=== PATIENT | male | born 1945 | race Caucasian/White ===

== ENCOUNTER 2019-08-20 22:50 | Emergency (ER) | payer MEDICARE, OTHER, SELFPAY ==
--- NOTE | 2019-08-20 23:03 | ECG_ITS ---
Measurements Intervals [place] Rate: 78 P: 257 AL: 148 QRS: -2 QRSD: 99 T: 136 QT: 370 QTc: 422 SINUS RHYTHM LEFT VENTRICULAR HYPERTROPHY AND ST-T CHANGE [VOLTAGE CRITERIA PLUS ST/T ABNORMALITY] No previous ECG available for comparison Electronically Signed On 08-21-2019 20:21:51 CDT by Jorge Atkinson M.D. [email or web address]
--- NOTE | 2019-08-20 23:03 | XRR_ITS ---
PROCEDURE INFORMATION: Exam: XR Chest, 1 View Exam date and time: 08/20/2019 11:27 PM Age: 74 years old Clinical indication: Other: Weakness TECHNIQUE: Imaging protocol: XR of the chest Views: 1 view. COMPARISON: No relevant prior studies available. FINDINGS: Lungs: Right middle lobe minimal atelectasis. Pleural space: Unremarkable. No pleural effusion. No pneumothorax. Heart/Mediastinum: Mild cardiomegaly. Bones/joints: Unremarkable. XR/XR chest 1V portable [id number] IMPRESSION: 1. Right middle lobe minimal atelectasis. 2. Mild cardiomegaly.
--- NOTE | 2019-08-20 23:03 | CTR_ITS ---
PROCEDURE INFORMATION: Exam: CT Head Without Contrast Exam date and time: 08/20/2019 11:12 PM Age: 74 years old Clinical indication: Weakness, extremity; Left; Additional info: Symptoms of acute stroke TECHNIQUE: Imaging protocol: Computed tomography of the head without contrast. Total DLP: 1568.387 mGy-cm Radiation optimization: All CT scans at this facility use at least one of these dose optimization techniques: automated exposure control; mA and/or kV adjustment per patient size (includes targeted exams where dose is matched to clinical indication); or iterative reconstruction. Other technique: STROKE PROTOCOL was implemented. COMPARISON: No relevant prior studies available. FINDINGS: Brain: Mild diffuse cortical volume loss. Mild-moderate scattered hypodensities in supratentorial periventricular and subcortical white matter. Encephalomalacia in the left occipital lobe. No intracranial hemorrhage. Ventricles: Normal. No ventriculomegaly. Bones/joints: Unremarkable. No acute fracture. Sinuses: Visualized sinuses are unremarkable. No fluid levels. Mastoid air cells: Visualized mastoid air cells are well aerated. Soft tissues: Unremarkable. Vasculature: No hyperdense artery. CT/CT head wo con* [id number] IMPRESSION: 1. No acute intracranial abnormality. 2. Mild-moderate microangiopathy. 3. Old left occipital lobe infarct. ASSESSMENT: ASPECTS ([facility] Stroke Program Early CT Score) is 10. Radiation Dose CTDIVOL = (mGy): DLP = 1568.387 (mGy-cm)
[2019-08-20 23:04] VITALS: BP 183/102; PULSE 73; RESP 16; TEMP 35.9; O2SAT 98; BMI 33.2
--- NOTE | 2019-08-20 23:04 | PC.NURSE ---
EKG done at 2300 and shown to ER doctor
--- NOTE | 2019-08-20 23:06 | W.ED.NEUROSD ---
HPI - Neuro Symptoms/Deficit General: Time Seen by Provider: 08/20/19 22:55 NIH stroke score NIHSS: Level Of Consciousness - 1a: 0 Level Of Consciousness Questions - 1b: Both Correct Level Of Consciousness Commands - 1c: Both Correct Best Gaze - 2: Forced Deviation Visual Osorio - 3: Partial Hemianopia Facial Palsy - 4: Partial Paralysis Motor Arm Right - 5: No Drift Motor Arm Left - 5: No Effort Against [place] Motor Leg Right - 6: No Drift Motor Leg Left - 6: No Drift Limb Ataxia - 7: Present In One Limb Sensory - 8: Severe To Total Loss Best Language - 9: Mild/Moderate Aphasia Dysarthia - 10: Mild/Moderate Dysarthia Extinction And Inattention - 11: 1 Score: Total Score: 14 Coding Level of Care Code ED Stitch Separator for Kathrine Mora
[2019-08-20 23:14] VITALS: BP 178/99; PULSE 73; RESP 18; O2SAT 100
[2019-08-20 23:24] LABS: Alanine Aminotransferase 16 U/L (0-41); Albumin Level 4.6 g/dL (3.5-5.2); Alkaline Phosphatase 89 IU/L (40-130); Anion Gap 17.8 (5-19); Aspartate Amino Transferase 25 U/L (0-40); Blood Urea Nitrogen 17 mg/dL (8-23); Calcium 9.8 mg/dL (8.5-10.5); Carbon Dioxide 27 mmol/L (22-29); Chloride 97 mmol/L (98-107); Globulin 3.2 g/dL (1.3-4.6); Glucose 123 mg/dL (65-115); Osmolality Calculated 284 mOsm/kg (285-295); Potassium 3.8 mmol/L (3.5-5.1); Sodium 138 mmol/L (136-145); Total Bilirubin 0.4 mg/dL (0.15-1.2); Total Protein 7.8 g/dL (6.6-8.7)
--- NOTE | 2019-08-20 23:24 | CTR_ITS ---
PROCEDURE INFORMATION: Exam: CT Angiography Head With Contrast Exam date and time: 08/20/2019 11:43 PM Age: 74 years old Clinical indication: Weakness; Additional info: CVA TECHNIQUE: Imaging protocol: Computed tomography angiography of the head with intravenous contrast. 3D rendering: MIP and/or 3D reconstructed images were created by the technologist. Total DLP: 3086.44 mGy-cm Radiation optimization: All CT scans at this facility use at least one of these dose optimization techniques: automated exposure control; mA and/or kV adjustment per patient size (includes targeted exams where dose is matched to clinical indication); or iterative reconstruction. Contrast material: VISI; Contrast volume: 95 ml; Contrast route: IV; COMPARISON: CT head wo con* [id number] 08/20/2019 11:11 PM FINDINGS: Right internal carotid artery: There is mild atherosclerotic disease in the cavernous portion of the right internal carotid artery without significant stenosis. Right anterior cerebral artery: No occlusion or significant stenosis. No aneurysm. Right middle cerebral artery: There is occlusion of the distal M1 segment of the right middle cerebral artery. See axial series 4, image 246 and coronal series 603, image 54. Right posterior cerebral artery: No occlusion or significant stenosis. No aneurysm. Right vertebral artery: No occlusion or significant stenosis. No aneurysm. Left internal carotid artery: There is mild atherosclerotic disease in the cavernous portion of the left internal carotid artery without significant stenosis. Left anterior cerebral artery: No occlusion or significant stenosis. No aneurysm. Left middle cerebral artery: No occlusion or significant stenosis. No aneurysm. Left posterior cerebral artery: No occlusion or significant stenosis. No aneurysm. Left vertebral artery: No occlusion or significant stenosis. No aneurysm. Basilar artery: No occlusion or significant stenosis. No aneurysm. HEAD: Brain: There is relative hypoenhancement of the right insula and basal ganglia. IMPRESSION: Occlusion of the distal M1 segment of the right middle cerebral artery. PROCEDURE INFORMATION: Exam: CT Angiography Neck With Contrast Exam date and time: 08/20/2019 11:43 PM Age: 74 years old Clinical indication: Weakness; Additional info: CVA TECHNIQUE: Imaging protocol: Computed tomography angiography of the neck with intravenous contrast. 3D rendering: MIP and/or 3D reconstructed images were created by the technologist. Total DLP: 3086.44 mGy-cm Radiation optimization: All CT scans at this facility use at least one of these dose optimization techniques: automated exposure control; mA and/or kV adjustment per patient size (includes targeted exams where dose is matched to clinical indication); or iterative reconstruction. Contrast material: VISI; Contrast volume: 95 ml; Contrast route: IV; COMPARISON: CT head wo con* [id number] 08/20/2019 11:11 PM FINDINGS: Right common carotid artery: No stenosis. No dissection or occlusion. Right internal carotid artery: No stenosis of the extracranial segment. No dissection or occlusion. Right external carotid artery: No occlusion or stenosis of the origin. Right vertebral artery: There is moderate atherosclerotic disease at the origin of the right vertebral artery with approximately 50% stenosis. Left common carotid artery: No stenosis. No dissection or occlusion. Left internal carotid artery: No stenosis of the extracranial segment. No dissection or occlusion. Left external carotid artery: No occlusion or stenosis of the origin. Left vertebral artery: No stenosis. No dissection or occlusion. Aorta: There is mild aortic atherosclerotic disease. Bones/joints: There is mild multilevel spinal canal stenosis. There is moderate multilevel lower cervical degenerative disc disease. There is no acute fracture. Soft tissues: Soft tissues in the neck and thoracic inlet are unremarkable. Lungs: There are nonocclusive segmental pulmonary arterial filling defects in the right lung apex. CT/CT angio headneck* [id number] IMPRESSION: 1. No arterial occlusion or dissection. 2. Approximately 50% stenosis due to atherosclerotic disease at the origin of the right vertebral artery. 3. Segmental pulmonary embolism in the right upper lobe of uncertain chronicity. Chronic pulmonary embolism is favored. REFERENCES: NASCET CRITERIA. The degree of internal carotid artery stenosis is based on NASCET criteria. Normal is no stenosis. Mild is less than 50% stenosis. Moderate is 50-69% stenosis. Severe is 70% to 99% stenosis. Total occlusion is no detectable patent lumen. Radiation Dose CTDIVOL = (mGy): DLP = 3086.44~3086.44 (mGy-cm)
[2019-08-20 23:29] VITALS: BP 167/96; PULSE 72; RESP 18; O2SAT 100
[2019-08-20 23:42] LABS: Basophils % 0.2 %; Eosinophils # 0.2 10^3/uL (0.0-0.8); Eosinophils % 4.2 %; Hematocrit 38.5 % (42.0-52.0); Hemoglobin 12.8 g/dL (11.7-16.6); Lymphocytes # 1.3 10^3/uL (0.8-4.8); Mean Corpuscular HGB Conc 33.2 g/dL (30.0-36.0); Mean Corpuscular Volume 96.3 fL (80-94); Mean Platelet Volume 11.6 fL (7.4-10.4); Monocytes # 0.5 10^3/uL (0.2-0.9); Monocytes % 8.1 %; Neutrophils # 3.6 10^3/uL (1.8-7.7); Neutrophils % 64.1 %; Nucleated Red Blood Cells % 0 %; Platelet Count 176 10^3/cmm (130-400); White Blood Count 5.5 10^3/uL (4.0-10.0)
[2019-08-20 23:44] VITALS: BP 140/98; PULSE 71; RESP 18; O2SAT 98
[2019-08-20 23:47] LABS: Partial Thromboplastin Time 25.6 SECONDS (23.9-36.7)
[2019-08-20 23:59] VITALS: BP 150/91; PULSE 68; RESP 18; O2SAT 99
--- NOTE | 2019-08-21 00:13 | PC.NURSE ---
alteplase administered to patient. this nurse along with cupola charger wasted 23.8 mg; 6.9mg bolus at 2345; infusion started at 2346 at 62ml/hr
[2019-08-21 00:14] VITALS: BP 144/86; PULSE 69; RESP 16; O2SAT 98
[2019-08-21] MEDS: iodixanol 320 mg/mL 100mL Btl IV (00:36)
[2019-08-21] MEDS: sodium chloride 0.9% 100 ML 62 ML (01:24)
[2019-08-21 01:30] VITALS: BP 161/96; PULSE 77; RESP 18; O2SAT 97
--- NOTE | 2019-08-21 01:33 | ED_ITS ---
HPI - Altered Mental Status General: Chief Complaint: Altered Mental Status Time Seen by Provider: 08/20/19 22:55 History of Present Illness: HPI narrative: 74-year-old gentleman who at 935 in the evening evidently had sudden onset of left-sided weakness, some facial droop, and slurring of speech. This happened at home. He presents in a similar fashion. He is awake alert and talking. He has no prior history of known stroke. He does have a history of seizure disorder, but no seizures were noted tonight. MD complaint: weakness Onset (ago): minute(s) Time: 21:35 Timing confirmed by: spouse and family member Severity: severe Consistency of symptoms: Constant Context: seizure disorder Review of Systems Const: Denies: fever or chills Eyes: Reports: change in vision; Denies: blurry vision ENMT: Denies: painful swallowing, post nasal drip or facial/sinus pain Card: Denies: chest pain, palpitations or irregular heart rhythm Resp: Denies: shortness of breath, productive cough, non-productive cough or wheezing GI: Denies: abdominal pain, nausea or vomiting : Denies: difficulty urinating or blood in urine Musc: Denies: neck pain, back pain, redness or joint warmth Skin/Breast: Denies: rash or itching Neuro: Denies: headache, dizziness or confusion Psych: Denies: anxiety Physical Exam Const: GENERAL APPEARANCE: well developed ORIENTATION/CONSCIOUSNESS: Yes oriented to person, Yes oriented to place and Yes oriented to time HENMT: COMMON NORMALS: external ears normal FACE & SINUS: normal facial exam NOSE: no nasal discharge EXTERNAL EAR: Yes external ears normal MOUTH: tongue normal THROAT: posterior oropharynx normal; no peritonsillar mass Eye: COMMON NORMALS: PERRL and conjunctivae normal EYELID: eyelids normal CONJUNCTIVA: Yes conjunctivae normal PUPIL: Yes PERRL Neck/C-Spine: GENERAL: No tracheal deviation Chest: COMMONS NORMALS: inspection of chest normal CHEST: No tenderness Resp: COMMON NORMALS: clear to auscultation bilaterally EFFORT & INSPECTION: No tachypneic, No respiratory distress, No retractions, No uses accessory muscles and No tracheal deviation AUSCULTATION: clear to auscultation bilaterally, no rhonchi, no wheezes and lung sounds not diminished Cardio: COMMON NORMALS: regular rate and regular rhythm RATE: regular rate RHYTHM: regular rhythm HEART SOUNDS: no murmurs PERIPHERAL PULSES: radial pulses present GI: INSPECTION: No abdominal distension AUSCULTATION: No hyperactive bowel sounds and No hypoactive bowel sounds PALPATION: No guarding and No rigid PERCUSSION: no dullness to percussion and no tympanic to percussion Neuro: SENSORIUM/ORIENTATION: Yes oriented to person, Yes oriented to place and Yes oriented to time CRANIAL NERVES: Yes CN VII (facial) Laterality: left CN VII left: facial droop COORDINATION/BALANCE: No uulljz-tr-clsm test normal and vcrc-mx-lijk test normal SPEECH: abnormal speech GAIT: Yes unable to assess gait SENSORY EXAM: Yes extremities (loss UE, LE, FACE chest on left) MOTOR EXAM: pronator drift pronator drift of left upper extremity (significant) COORDINATION: pqbqhi-aj-zxre test abnormal and odgb-ay-squz test normal Psych: COMMON NORMALS: mental status grossly normal Skin: COMMON NORMALS: no rashes or lesions noted GENERAL SKIN EXAM: no rashes or lesions noted Course Vital Signs: Vital signs: Vital Signs Temperature 96.6 F L 08/20/19 23:04 Pulse Rate 58 L 08/21/19 02:07 Respiratory Rate 16 08/21/19 02:07 Blood Pressure 125/71 08/21/19 02:07 Pulse Oximetry 94 08/21/19 02:07 MDM - Altered Mental Status MDM Narrative: Medical decision making narrative: 74-year-old male presents within the window with symptoms consistent with right middle circulation stroke. His initial noncontrast CT was negative for hemorrhage. It did show an old left occipital stroke. Stroke alert was called, and after discussion with neurology at [facility], along with counseling with family, agr greyd to give TPA. He did not worsen. Initially, he would not follow to the left past midline, had neglect, etc. His stroke scale score was 14. He is now moving the left upper extremity more, he follows/turns his head past midline to the left. He still has a vision deficit. He still has some neglect of the left side. CTA revealed a right M1 MCA occlusion. Discussed this again with neurology at [facility] in [place]. He would be a candidate for vascular intervention with at this point. They ask for him to be transferred there. We have cleared with air ambulance service, and are transporting this patient to [place]. Currently heart rate 60 sinus, blood pressure 125/71. Oxygen sats 95% on room air. Lab Data: Labs: Lab Results 08/20/19 08/20/19 08/20/19 Range/Units 23:01 23:01 23:32 WBC 5.5 (4.0-10.0) 10^3/ uL RBC 4.00 L (4.1-5.3) 10^6/u L Hgb 12.8 (11.7-16.6) g/dL Hct 38.5 L (42.0-52.0) % MCV 96.3 H (80-94) fL MCH 32.0 (28.0-34.0) pg MCHC 33.2 (30.0-36.0) g/dL RDW 13.0 (12.1-15.1) % Plt Count 176 (130-400) 10^3/c mm MPV 11.6 H (7.4-10.4) fL Neut % (Auto) 64.1 % Lymph % (Auto) 23.0 % [place] % (Auto) 8.1 % Eos % (Auto) 4.2 % Baso % (Auto) 0.2 % Neut # (Auto) 3.6 (1.8-7.7) 10^3/u L Lymph # (Auto) 1.3 (0.8-4.8) 10^3/u L [place] # (Auto) 0.5 (0.2-0.9) 10^3/u L Eos # (Auto) 0.2 (0.0-0.8) 10^3/u L Baso # (Auto) 0.0 (0.0-0.1) 10^3/u L Nucleated RBC % (a uto) 0 % Nucleated RBCs # 0.0 /100WBC PT Cancelled INR Cancelled APTT Cancelled Sodium 138 (136-145) mmol/L Potassium 3.8 (3.5-5.1) mmol/L Chloride 97 L (98-107) mmol/L Carbon Dioxide 27 (22-29) mmol/L Anion Gap 17.8 (5-19) BUN 17 (8-23) mg/dL Creatinine 1.5 H (0.7-1.2) mg/dL Glucose 123 H (65-115) mg/dL Calculated Osmolal ity 284 L (285-295) mOsm/k g Calcium 9.8 (8.5-10.5) mg/dL Total Bilirubin 0.4 (0.15-1.2) mg/dL AST 25 (0-40) U/L ALT 16 (0-41) U/L Alkaline Phosphata se 89 (40-130) IU/L Total Protein 7.8 (6.6-8.7) g/dL Albumin 4.6 (3.5-5.2) g/dL Globulin 3.2 (1.3-4.6) g/dL 08/20/19 Range/Units 23:32 WBC (4.0-10.0) 10^3/ uL RBC (4.1-5.3) 10^6/u L Hgb (11.7-16.6) g/dL Hct (42.0-52.0) % MCV (80-94) fL MCH (28.0-34.0) pg MCHC (30.0-36.0) g/dL RDW (12.1-15.1) % Plt Count (130-400) 10^3/c mm MPV (7.4-10.4) fL Neut % (Auto) % Lymph % (Auto) % [place] % (Auto) % Eos % (Auto) % Baso % (Auto) % Neut # (Auto) (1.8-7.7) 10^3/u L Lymph # (Auto) (0.8-4.8) 10^3/u L [place] # (Auto) (0.2-0.9) 10^3/u L Eos # (Auto) (0.0-0.8) 10^3/u L Baso # (Auto) (0.0-0.1) 10^3/u L Nucleated RBC % (a uto) % Nucleated RBCs # /100WBC PT 13.50 H INR 1.00 APTT 25.6 Sodium (136-145) mmol/L Potassium (3.5-5.1) mmol/L Chloride (98-107) mmol/L Carbon Dioxide (22-29) mmol/L Anion Gap (5-19) BUN (8-23) mg/dL Creatinine (0.7-1.2) mg/dL Glucose (65-115) mg/dL Calculated Osmolal ity (285-295) mOsm/k g Calcium (8.5-10.5) mg/dL Total Bilirubin (0.15-1.2) mg/dL AST (0-40) U/L ALT (0-41) U/L Alkaline Phosphata se (40-130) IU/L Total Protein (6.6-8.7) g/dL Albumin (3.5-5.2) g/dL Globulin (1.3-4.6) g/dL Critical Care Time Critical Care Time: Critical Care Time: Yes Total Critical Care Time: 50 Attestation: This case had a high probability of a clinically significant, sudden, or life threatening deterioration of this patient's condition which required my full and direct attention, intervention and personal management. Discharge Plan Discharge Patient Disposition: Xfer Other Referrals: [facility] [Other] Discharge Date/Time: 08/21/19 03:00 Coding Level of Care Code ED Gas Engine Performance Engineer for Kathrine Fwd Exam Comprehensive
[2019-08-21 02:06] VITALS: BP 125/71; PULSE 58; RESP 16; O2SAT 94
[2019-08-21 02:07] VITALS: BP 125/71; PULSE 58; RESP 16; O2SAT 94
[2019-08-21 07:13] LABS: Glucose Point of Care 128 mg/dL (70-110)
== END 2019-08-21 03:00 | disposition other institution (70) ==
PROVIDERS: Emergency Provider Emergency Medicine
DX: R41.82 Altered mental status, unspecified (principal); R53.1 Weakness
CPT/HCPCS: 12345; 36416; 70450; 70496; 70498; 71045; 80053; 82962; 85025; 85610; 85730; 93005; 96365; 96366; 99284; 99285; J2997; Q9967

== ENCOUNTER 2019-10-02 08:55 | Emergency (ER) | payer MEDICARE, OTHER, SELFPAY ==
[2019-10-02 09:03] VITALS: BP 140/88; PULSE 76; RESP 18; TEMP 36.5; O2SAT 98; BMI 28.1
--- NOTE | 2019-10-02 09:09 | CTR_ITS ---
PROCEDURE INFORMATION: Exam: CT Head Without Contrast Exam date and time: 10/02/2019 9:45 AM Age: 74 years old Clinical indication: Weakness, extremity; Bilateral TECHNIQUE: Imaging protocol: Computed tomography of the head without contrast. Radiation optimization: All CT scans at this facility use at least one of these dose optimization techniques: automated exposure control; mA and/or kV adjustment per patient size (includes targeted exams where dose is matched to clinical indication); or iterative reconstruction. COMPARISON: CT head wo con* [id number] 08/20/2019 11:11 PM RADIATION DOSE METRICS: Total DLP: 816.78 mGy-cm FINDINGS: Brain: Large ischemic infarct in the right MCA distribution, believed to be subacute. MRI can be performed for improved characterization if clinically indicated. Chronic ischemic infarct in the left occipital lobe. Small-vessel ischemic change, including a large right basal ganglia lacunar infarct. Prominence of the cortical sulci. Ventricles: Age appropriate caliber of the ventricles. Bones/joints: No acute calvarial pathology. Additional findings as described above. Sinuses: No sinus fluid. Mastoid air cells: Partial opacification of the left mastoid air cells. Vasculature: Vascular and dural calcification. Soft tissues: Unremarkable soft tissues. CT/CT head wo con* [id number] IMPRESSION: 1. Large ischemic infarct in the right MCA distribution, believed to be subacute. MRI can be performed for improved characterization if clinically indicated. 2. Small-vessel ischemic change, including a large right basal ganglia lacunar infarct. 3. Additional findings as described above. The aforementioned findings initiated a critical results communication pathway. An addendum will be issued at the time of clincian notification. Radiation Dose CTDIVOL = (mGy): DLP = 816.78 (mGy-cm)
--- NOTE | 2019-10-02 09:09 | ECG_ITS ---
Measurements Intervals [place] Rate: 74 P: 42 [place]: 143 QRS: 8 QRSD: 104 T: 167 QT: 415 QTc: 462 SINUS RHYTHM LEFT VENTRICULAR HYPERTROPHY AND ST-T CHANGE [VOLTAGE CRITERIA PLUS ST/T ABNORMALITY] Compared to ECG 08/20/2019 23:04:48 No significant changes Electronically Signed On 10-02-2019 19:05:15 CDT by Ruslan Lovett M.D. [id number] f
--- NOTE | 2019-10-02 09:11 | XRR_ITS ---
PROCEDURE INFORMATION: Exam: XR Chest, 1 View Exam date and time: 10/02/2019 9:14 AM Age: 74 years old Clinical indication: Other: Weakness TECHNIQUE: Imaging protocol: XR of the chest Views: 1 view. COMPARISON: CR (CHEST, ) 08/20/2019 11:18 PM FINDINGS: Lungs: Emphysematous change and mild interstitial prominence. Pleural space: Thickening of the right minor fissure. No significant pleural effusion. Heart/Mediastinum: Cardiomegaly. Prominent epicardial fat. Vasculature: Ectasia of the thoracic aorta. Bones/joints: Degenerative change. When correlating with the previous study, no significant interval changes are present. XR/XR chest 1V portable [id number] IMPRESSION: Stable appearance of the chest, not significantly changed from 08/20/19.
--- NOTE | 2019-10-02 09:14 | W.ED.NEUROSD ---
HPI - Neuro Symptoms/Deficit General: Chief Complaint: Neuro Symptoms/Deficit Stated Complaint: FALLS/L SIDED WEAKNESS Time Seen by Provider: 10/02/19 09:05 Source: patient Mode of arrival: ambulatory Limitations: no limitations History of Present Illness: HPI Narrative: Patient comes in this morning with 2 or 3 episodes of falling at home. Patient appears well. Patient does have a history of a CVA approximately 6 weeks ago at the end of July. Patient has some left-sided deficit but at this time is not exhibiting any problems. Patient is to use a walker while ambulating but does not use it all the time. Patient reports no cough, fever, urinary difficulty. Patient though is incontinent of urine. Patient is alert oriented. Patient appears well. Patient appears in no pain. Review of Systems General: Reports: 10 or more systems reviewed and unremarkable except in HPI and below Neuro: Reports: difficulty walking PFSH ED PFSH: Social History Smoking and tobacco status: never smoked Physical Exam Const: COMMON NORMALS: no acute distress, patient oriented x3 and alert GENERAL APPEARANCE: cooperative HENMT: COMMON NORMALS: normocephalic, TM's normal bilaterally and Normal external nose present HEAD & SCALP: normal to inspection and normocephalic NOSE: Normal external nose present TYMPANIC MEMBRANE: TM's normal bilaterally MOUTH: Normal oral and palatal mucosa present THROAT: posterior oropharynx normal Eye: GENERAL EYE: appearance normal, both eyes and all related structures Neck/C-Spine: COMMON NORMALS: full ROM and no meningeal signs Lymph: LYMPHATIC: no lymphadenopathy noted Chest: COMMONS NORMALS: normal inspection of the chest Resp: COMMON NORMALS: normal respiratory effort EFFORT & INSPECTION: Yes able to speak in complete sentences Cardio: COMMON NORMALS: regular rate and regular rhythm RATE: regular rate RHYTHM: regular rhythm GI: COMMON NORMALS: non-tender : COMMON NORMALS: Yes no CVA tenderness BLADDER/KIDNEY EXAM: Yes no CVA tenderness Back/Pelvis: COMMON NORMALS: no CVA tenderness and thoracic and lumbar spine normal to inspection Extremity: COMMON NORMALS: normal to inspection Neuro: COMMON NORMALS: patient oriented x3 and moves all extremities SENSORIUM/ORIENTATION: Yes alert MENINGEAL SIGNS: Yes no meningeal signs SPEECH: speech normal Psych: COMMON NORMALS: mental status grossly normal and cooperative Skin: COMMON NORMALS: no rashes or lesions noted GENERAL SKIN EXAM: no rashes or lesions noted Course Vital Signs: Vital signs: Vital Signs Temperature 97.7 F 10/02/19 09:03 Pulse Rate 76 10/02/19 09:03 Respiratory Rate 18 10/02/19 09:03 Blood Pressure 140/88 10/02/19 09:03 Pulse Oximetry 98 10/02/19 09:03 MDM - Neuro Symptoms/Deficit MDM Narrative: Medical decision making narrative: Patient presents today with complaints of weakness this morning and a fall. says he seems weaker today and he had slept all day yesterday. She was concerned there might be an infection. Patient is cooperative and speaks fine. Patient answers all questions appropriately. Patient has a little bit of left side facial droop from old stroke, he also has some left-sided weakness due to a recent stroke at the end of July. Differential diagnosis includes sepsis, dehydration, adverse drug effect, UTI, pneumonia. Chest x-ray was normal, urine was clear, laboratory values noted mild elevation of creatinine at 1.4 which is normal for patient. Patient also has a white count of 10,000. CT scan showed a subacute infarct on the right side which is probably due to his infarct back at the end of July. Patient was able to ambulate with minimal assist from spouse. Reviewed exam with patient and spouse recommending evaluation of medications and maybe consideration of reducing the dose of his benzodiazepine to assist with his sleepiness at times and his weakness. Recommended monitoring patient for worsening symptoms such as fever or increase weakness. Spouse and patient reports understanding and agreed to plan. Lab Data: Labs: Lab Results 10/02/19 10/02/19 10/02/19 Range/Units 09:15 09:15 09:15 WBC 10.0 (4.0-10.0) 10^3/ uL RBC 4.31 (4.1-5.3) 10^6/u L Hgb 13.7 (11.7-16.6) g/dL Hct 40.8 L (42.0-52.0) % MCV 94.7 H (80-94) fL MCH 31.8 (28.0-34.0) pg MCHC 33.6 (30.0-36.0) g/dL RDW 12.8 (12.1-15.1) % Plt Count 195 (130-400) 10^3/c mm MPV 11.2 H (7.4-10.4) fL Neut % (Auto) 88.6 % Lymph % (Auto) 5.9 % [place] % (Auto) 4.9 % Eos % (Auto) 0.3 % Baso % (Auto) 0.1 % Neut # (Auto) 8.9 H (1.8-7.7) 10^3/u L Lymph # (Auto) 0.6 L (0.8-4.8) 10^3/u L [place] # (Auto) 0.5 (0.2-0.9) 10^3/u L Eos # (Auto) 0.0 (0.0-0.8) 10^3/u L Baso # (Auto) 0.0 (0.0-0.1) 10^3/u L Nucleated RBC % (a uto) 0 % Nucleated RBCs # 0.0 /100WBC PT (10.5-13.3) SECO NDS INR (0.8-1.2) APTT (23.9-36.7) SECO NDS Sodium 136 (136-145) mmol/L Potassium 4.0 (3.5-5.1) mmol/L Chloride 97 L (98-107) mmol/L Carbon Dioxide 24 (22-29) mmol/L Anion Gap 19.0 (5-19) BUN 23 (8-23) mg/dL Creatinine 1.4 H (0.7-1.2) mg/dL Glucose 166 H (65-115) mg/dL POC Glucose (70-110) mg/dL Calculated Osmolal ity 282 L (285-295) mOsm/k g Lactic Acid 2.6 H (0.5-2.2) mmol/L Calcium 10.1 (8.5-10.5) mg/dL Total Bilirubin 0.2 (0.15-1.2) mg/dL AST 29 (0-40) U/L ALT 17 (0-41) U/L Alkaline Phosphata se 82 (40-130) IU/L Total Protein 7.6 (6.6-8.7) g/dL Albumin 4.5 (3.5-5.2) g/dL Globulin 3.1 (1.3-4.6) g/dL Urine Color (Yellow) Urine Appearance (CLEAR) Urine pH (5-7) Ur Specific Gravit y (1.005-1.030) Urine Protein (Negative) Urine Glucose (UA) (Normal) Urine Ketones (Negative) Urine Blood (Negative) Urine Nitrate (Negative) Urine Bilirubin (NEGATIVE) Urine Urobilinogen (Negative) mg/dL Ur Leukocyte Berta ase (Negative) Urine Opiates Scre en (Negative) ng/mL Ur Barbiturates Sc reen (Negative) ng/mL Ur Phencyclidine S crn (Negative) ng/mL Ur Amphetamines Sc reen (Negative) ng/mL U Benzodiazepines Scrn (Negative) ng/mL Urine Cocaine Scre en (Negative) ng/mL U Marijuana (THC) Screen (Negative) ng/mL 10/02/19 10/02/19 10/02/19 Range/Units 09:15 09:33 10:00 WBC (4.0-10.0) 10^3/ uL RBC (4.1-5.3) 10^6/u L Hgb (11.7-16.6) g/dL Hct (42.0-52.0) % MCV (80-94) fL MCH (28.0-34.0) pg MCHC (30.0-36.0) g/dL RDW (12.1-15.1) % Plt Count (130-400) 10^3/c mm MPV (7.4-10.4) fL Neut % (Auto) % Lymph % (Auto) % [place] % (Auto) % Eos % (Auto) % Baso % (Auto) % Neut # (Auto) (1.8-7.7) 10^3/u L Lymph # (Auto) (0.8-4.8) 10^3/u L [place] # (Auto) (0.2-0.9) 10^3/u L Eos # (Auto) (0.0-0.8) 10^3/u L Baso # (Auto) (0.0-0.1) 10^3/u L Nucleated RBC % (a uto) % Nucleated RBCs # /100WBC PT 13.80 H (10.5-13.3) SECO NDS INR 1.02 (0.8-1.2) APTT 25.3 (23.9-36.7) SECO NDS Sodium (136-145) mmol/L Potassium (3.5-5.1) mmol/L Chloride (98-107) mmol/L Carbon Dioxide (22-29) mmol/L Anion Gap (5-19) BUN (8-23) mg/dL Creatinine (0.7-1.2) mg/dL Glucose (65-115) mg/dL POC Glucose 148 (70-110) mg/dL Calculated Osmolal ity (285-295) mOsm/k g Lactic Acid (0.5-2.2) mmol/L Calcium (8.5-10.5) mg/dL Total Bilirubin (0.15-1.2) mg/dL AST (0-40) U/L ALT (0-41) U/L Alkaline Phosphata se (40-130) IU/L Total Protein (6.6-8.7) g/dL Albumin (3.5-5.2) g/dL Globulin (1.3-4.6) g/dL Urine Color Yellow (Yellow) Urine Appearance Clear (CLEAR) Urine pH 5 (5-7) Ur Specific Gravit y 1.015 (1.005-1.030) Urine Protein Neg (Negative) Urine Glucose (UA) Norm (Normal) Urine Ketones 1+ H (Negative) Urine Blood Neg (Negative) Urine Nitrate Negative (Negative) Urine Bilirubin Neg (NEGATIVE) Urine Urobilinogen Norm (Negative) mg/dL Ur Leukocyte Berta ase Negative (Negative) Urine Opiates Scre en (Negative) ng/mL Ur Barbiturates Sc reen (Negative) ng/mL Ur Phencyclidine S crn (Negative) ng/mL Ur Amphetamines Sc reen (Negative) ng/mL U Benzodiazepines Scrn (Negative) ng/mL Urine Cocaine Scre en (Negative) ng/mL U Marijuana (THC) Screen (Negative) ng/mL 10/02/19 Range/Units 10:00 WBC (4.0-10.0) 10^3/ uL RBC (4.1-5.3) 10^6/u L Hgb (11.7-16.6) g/dL Hct (42.0-52.0) % MCV (80-94) fL MCH (28.0-34.0) pg MCHC (30.0-36.0) g/dL RDW (12.1-15.1) % Plt Count (130-400) 10^3/c mm MPV (7.4-10.4) fL Neut % (Auto) % Lymph % (Auto) % [place] % (Auto) % Eos % (Auto) % Baso % (Auto) % Neut # (Auto) (1.8-7.7) 10^3/u L Lymph # (Auto) (0.8-4.8) 10^3/u L [place] # (Auto) (0.2-0.9) 10^3/u L Eos # (Auto) (0.0-0.8) 10^3/u L Baso # (Auto) (0.0-0.1) 10^3/u L Nucleated RBC % (a uto) % Nucleated RBCs # /100WBC PT (10.5-13.3) SECO NDS INR (0.8-1.2) APTT (23.9-36.7) SECO NDS Sodium (136-145) mmol/L Potassium (3.5-5.1) mmol/L Chloride (98-107) mmol/L Carbon Dioxide (22-29) mmol/L Anion Gap (5-19) BUN (8-23) mg/dL Creatinine (0.7-1.2) mg/dL Glucose (65-115) mg/dL POC Glucose (70-110) mg/dL Calculated Osmolal ity (285-295) mOsm/k g Lactic Acid (0.5-2.2) mmol/L Calcium (8.5-10.5) mg/dL Total Bilirubin (0.15-1.2) mg/dL AST (0-40) U/L ALT (0-41) U/L Alkaline Phosphata se (40-130) IU/L Total Protein (6.6-8.7) g/dL Albumin (3.5-5.2) g/dL Globulin (1.3-4.6) g/dL Urine Color (Yellow) Urine Appearance (CLEAR) Urine pH (5-7) Ur Specific Gravit y (1.005-1.030) Urine Protein (Negative) Urine Glucose (UA) (Normal) Urine Ketones (Negative) Urine Blood (Negative) Urine Nitrate (Negative) Urine Bilirubin (NEGATIVE) Urine Urobilinogen (Negative) mg/dL Ur Leukocyte Berta ase (Negative) Urine Opiates Scre en Negative (Negative) ng/mL Ur Barbiturates Sc reen Positive H (Negative) ng/mL Ur Phencyclidine S crn Negative (Negative) ng/mL Ur Amphetamines Sc reen Negative (Negative) ng/mL U Benzodiazepines Scrn Positive H (Negative) ng/mL Urine Cocaine Scre en Negative (Negative) ng/mL U Marijuana (THC) Screen Negative (Negative) ng/mL EKG Data^: EKG 1: Attestation: I personally reviewed and interpreted this EKG as follows: ( 45, sinus rhythm, left ventricular hypertrophy, regular rate at 74 bpm, no ST elevation, no ectopy, no change from EKG done on 08/20/2019.) Discharge Plan Discharge Patient Disposition: Home, Self-Care Clinical Impression: History of cerebrovascular accident Leg weakness Qualifiers: Laterality: left Qualified Code(s): R29.898 - Other symptoms and signs involving the musculoskeletal system Condition: Stable Prescriptions: No Action metformin 500 mg tablet 500 mg PO DAILY RF: 0 atorvastatin 80 mg tablet 80 mg PO DAILY RF: 0 aspirin 325 mg Tablet 325 mg PO DAILY RF: 0 alprazolam 1 mg tablet 1 mg PO TID RF: 0 amlodipine 5 mg tablet 5 mg PO DAILY RF: 0 glimepiride 1 mg tablet 1 mg PO DAILY RF: 0 phenobarbital 64.8 mg tablet 64.8 mg PO BID RF: 0 hydrochlorothiazide 25 mg tablet 25 mg PO DAILY RF: 0 Vitamin D2 1,250 mcg (50,000 unit) capsule 50,000 unit PO Q7D RF: 0 lisinopril 40 mg tablet 40 mg PO DAILY RF: 0 Xarelto 20 mg tablet 20 mg PO DAILY RF: 0 Discharge Orders: Discharge Order (Routine); Ordered 10/02/19 Ordered By: Anthony Gomez Discharge Diet: Usual diet Discharge Activity: Increase activity as tolerated Activity Restrictions/Additional Instructions: Drink plenty of fluids. Continue with routine medications as directed. Follow-up with primary care for further evaluation and treatment. It may be needed that patient needs his medication adjusted to help with fatigue. No signs of infection were noted at this time. No changes in CT scan was noted. Return to the ER for worsening symptoms or high fever. Coding Level of Care Code ED Postdoctoral Fellow for Chg Fwd Exam Comprehensive
[2019-10-02 09:23] LABS: Basophils % 0.1 %; Eosinophils % 0.3 %; Hematocrit 40.8 % (42.0-52.0); Hemoglobin 13.7 g/dL (11.7-16.6); Lymphocytes # 0.6 10^3/uL (0.8-4.8); Lymphocytes % 5.9 %; Mean Corpuscular HGB Conc 33.6 g/dL (30.0-36.0); Mean Corpuscular Hemoglobin 31.8 pg (28.0-34.0); Mean Corpuscular Volume 94.7 fL (80-94); Mean Platelet Volume 11.2 fL (7.4-10.4); Monocytes # 0.5 10^3/uL (0.2-0.9); Monocytes % 4.9 %; Neutrophils # 8.9 10^3/uL (1.8-7.7); Neutrophils % 88.6 %; Nucleated Red Blood Cells % 0 %; Platelet Count 195 10^3/cmm (130-400); Red Blood Count 4.31 10^6/uL (4.1-5.3); Red Cell Distribution Width 12.8 % (12.1-15.1)
[2019-10-02 09:36] LABS: Alanine Aminotransferase 17 U/L (0-41); Albumin Level 4.5 g/dL (3.5-5.2); Alkaline Phosphatase 82 IU/L (40-130); Aspartate Amino Transferase 29 U/L (0-40); Blood Urea Nitrogen 23 mg/dL (8-23); Calcium 10.1 mg/dL (8.5-10.5); Carbon Dioxide 24 mmol/L (22-29); Chloride 97 mmol/L (98-107); Globulin 3.1 g/dL (1.3-4.6); Glucose 166 mg/dL (65-115); Osmolality Calculated 282 mOsm/kg (285-295); Sodium 136 mmol/L (136-145); Total Bilirubin 0.2 mg/dL (0.15-1.2); Total Protein 7.6 g/dL (6.6-8.7)
[2019-10-02 09:42] LABS: Glucose Point of Care 148 mg/dL (70-110)
[2019-10-02 09:48] LABS: Lactic Sepsis W/Reflex 2.6 mmol/L (0.5-2.2)
[2019-10-02 10:08] LABS: INR 1.02 (0.8-1.2)
[2019-10-02 10:09] LABS: Partial Thromboplastin Time 25.3 SECONDS (23.9-36.7)
[2019-10-02 10:11] LABS: Add Urine Microscopic? NO
[2019-10-02 10:23] LABS: Amphetamines Screen Urine Negative (Negative); Barbiturates Screen Urine Positive (Negative); Benzodiazepines Screen Urine Positive (Negative); Cocaine Screen Urine Negative (Negative); Opiate Screen Urine Negative (Negative); PCP Screen Urine Negative (Negative); THC Screen Urine Negative (Negative)
[2019-10-02 10:29] LABS: Bilirubin Urine Neg (NEGATIVE); Blood Urine Neg (Negative); Glucose Urine UA Norm (Normal); Ketones Urine 1+ (Negative); Leukocyte Esterase Urine Negative (Negative); Nitrate Urine Negative (Negative); Protein Urine Neg (Negative); Specific Gravity, Urine 1.015 (1.005-1.030); Urine Appearance Clear (CLEAR); Urine Color Yellow (Yellow); Urobilinogen Urine Norm (Negative); pH Urine 5 (5-7)
[2019-10-02 11:06] LABS: Reflex Lactate Order REFLEX LACTIC ORDERD
[2019-10-02 11:56] VITALS: BP 140/107; PULSE 86; RESP 18; O2SAT 100
== END 2019-10-02 11:58 | disposition home or self-care (01) ==
PROVIDERS: Emergency Provider Nurse Practitioner Family
DX: R29.898 Other symptoms and signs involving the musculoskeletal system (principal); Z86.73 Personal history of transient ischemic attack (TIA), and cerebral infarction without residual deficits; Z79.82 Long term (current) use of aspirin; Z79.84 Long term (current) use of oral hypoglycemic drugs; Z79.899 Other long term (current) drug therapy
CPT/HCPCS: 12345; 36415; 36416; 70450; 71045; 80053; 80306; 81003; 82962; 83605; 85025; 85610; 85730; 93005; 99283; 99284

== ENCOUNTER 2020-05-17 09:13 | Outpatient (CLI) | payer MEDICARE, OTHER, SELFPAY ==
--- NOTE | 2020-05-17 09:31 | ECG_ITS ---
[facility] Test Date: 2020-05-17 Pat Name: Aron Paredes Department: Room: Gender: Male Owner Operator: : 1945 Requested By: Ute Borrego Order Number: [id number] Ezequiel MD: STARLA MEAD Interpretive Statements NAME OF STUDY: LEXISCAN SESTAMIBI STRESS TEST INDICATION: ASHD, NOTE: Please note that this is the electrocardiogram portion of the Lexiscan/Sestamibi stress test. The perfusion scan will be documented separately. DATA: Baseline heart rate was 85 beats per minute. Baseline blood pressure was 153/82 millimeters of mercury. Target heart rate was 147. Maximum heart rate achieved was 124. which was 84 % of the predicted target heart rate. Maximum blood pressure was 153/84 millimeters of mercury. The reason for ending the test was completion of the protocol. The patient did not experience any symptoms. ELECTROCARDIOGRAM: BASELINE: Sinus rhythm. Left ventricle hypertrophy, anterolateral T wave inversion could be repolarization abnormality. No arrhythmia noted. EXERCISE: After Lexiscan injection, no ST-T changes suggestive of ischemic noted. No arrhythmia noted. CONCLUSION: Please note due to baseline abnormality of the EKG specificity and sensitivity of the EKG portion of LexiScan MIBI stress test will be low 1. EKG not suggestive of ischemia 2. Lexiscan injection unremarkable. 3. Perfusion scan will be documented separately. Electronically Signed On 05-17-2020 18:19:05 REPAIR SUPERVISOR by STARLA MEAD [id number]
--- NOTE | 2020-05-17 09:32 | NMCV_ITS ---
NM jana perf SPECT r/s* [id number] Aron Paredes Age: 75 Gender: M : 1945 Exam Date: 05/17/2020 09:32 Ordering Phys: Ute Hodges MD Technologist: ANTONETTE Martínez Exam Location: [facility] Indications: ATHEROSCLEROTIC HEART DISEASE STRESS TEST Please see separate stress test report in [facility] for full findings IMAGE PROTOCOL Rest/Stress 1 Lexiscan Day Radiopharmaceutical Dose (mCi) Administration Site Administered by Rest: Tc-99m 10.7 IV ANTONETTE Martínez Sestamibi Stress:Tc-99m 32.6 IV ANTONETTE Kelley Sestamibi Rest: 17-May-2020 60 Discovery 630 Stress: 17-May-2020 30 Discovery 630 0.4mg Lexiscan. Images obtained in supine and prone position. SPECT RESULTS Technical Quality: Excellent Raw Data Analysis: Normal Image Corrections: No attenuation or motion correction applied Summed Stress Score: 0 Summed Rest Score: 3 Summed Difference Score: 0 PERFUSION FINDINGS SPECT images demonstrate homogeneous tracer distribution throughout the myocardium. FUNCTIONAL RESULTS (calculated via Gated SPECT) Stress Image LV EF (%): 70 Stress EDV (mL):67 TID: 1.33 Stress ESV (mL):20 Rest Image LV EF (%): 70 FUNCTIONAL FINDINGS: There is normal left ventricular systolic function. IMPRESSIONS Myocardial perfusion imaging is normal. TID ratio is elevated which could be secondary to left ventricle hypertrophy/subendocardial ischemia in the absence of other parameters. EKG segment will be documented separately. Ruslan Lovett MD (Electronically Signed) Final Date: 17 May 2020 17:16 S
[2020-05-17 09:45] VITALS: BMI 25.8
[2020-05-17] MEDS: regadenoson 0.4 Mg/5 ml Syringe IVP (11:31)
[2020-05-17 11:50] VITALS: BP 133/79; PULSE 89
== END 2020-05-17 09:14 | disposition home or self-care (01) ==
LOC: CDL 09:24
PROVIDERS: Visit Provider Family Medicine
DX: I25.10 Atherosclerotic heart disease of native coronary artery without angina pectoris (principal)
CPT/HCPCS: 78452; 93017; A9500; J2785

== ENCOUNTER → 2020-07-12 11:12 | Outpatient (BNVA) | payer MEDICARE, OTHER, SELFPAY | PROVIDERS: PCP Family Medicine; Visit Provider Urology | DX: R97.20 Elevated prostate specific antigen [PSA] (principal); R39.89 Other symptoms and signs involving the genitourinary system; R39.9 Unspecified symptoms and signs involving the genitourinary system | CPT/HCPCS: 81003 ==

== ENCOUNTER 2021-11-11 14:52 | Inpatient (IN) | payer MEDICARE, OTHER, SELFPAY ==
[2021-11-11] VITALS (19 sets, daily range): BP systolic 141–216; BP diastolic 92–171; PULSE 86–112; RESP 13–22; TEMP 36.8–37; O2SAT 91–98; BMI 27.3
--- NOTE | 2021-11-11 16:33 | ECG_ITS ---
[facility] Test Date: 2021-11-11 Pat Name: Aron Paredes Department: Room: Gender: Male Lead Applier: : 1945 Requested By: Donte Sampson Order Number: [id number] Ezequiel MD: Calixto Cortés M.D. Measurements Intervals [place] Rate: 85 P: CA: QRS: -9 QRSD: 97 T: 131 QT: 377 QTc: 449 Interpretive Statements ATRIAL FIBRILLATION VOLTAGE CRITERIA FOR LVH [MEETS CRITERIA IN ONE OF: R(aVL), S(V1), R(V5), R(V5/V6)+S(V1)] ST DEVIATION AND MODERATE T-WAVE ABNORMALITY, CONSIDER LATERAL ISCHEMIA [-0.1+ mV T-WAVE IN I/aVL/V5/V6] Compared to ECG 10/02/2019 09:45:09 T-wave abnormality now present Possible ischemia now present Sinus rhythm no longer present ST (T wave) deviation no longer present Electronically Signed On 11-11-2021 17:52:52 CDT by Calixto Cortés M.D. [id number]
--- NOTE | 2021-11-11 16:34 | CTR_ITS ---
PROCEDURE INFORMATION: Exam: CT Head Without Contrast Exam date and time: 11/11/2021 5:33 PM Age: 76 years old Clinical indication: Condition or disease; Cerebrovascular disease; Other: HX of CVA; Patient HX: Extremely high blood pressure with left sided weakness, TECHNIQUE: Imaging protocol: Computed tomography of the head without contrast. Radiation optimization: All CT scans at this facility use at least one of these dose optimization techniques: automated exposure control; mA and/or kV adjustment per patient size (includes targeted exams where dose is matched to clinical indication); or iterative reconstruction. COMPARISON: CT head wo con* [id number] 10/02/2019 9:40 AM RADIATION DOSE METRICS: Total DLP (mGy-cm): 1375.88 FINDINGS: Brain: No hemorrhage. Regions of encephalomalacia in the right MCA distribution and left occipital lobe corresponding to old infarcts. Moderate diffuse cerebral atrophy. No mass effect. Cerebral ventricles: No ventriculomegaly. Paranasal sinuses: Visualized sinuses are unremarkable. No fluid levels. Mastoid air cells: Visualized mastoid air cells are well aerated. Bones/joints: Unremarkable. No acute fracture. Soft tissues: Unremarkable. CT/CT head wo con* [id number] IMPRESSION: 1. No acute intracranial abnormality. 2. 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
--- NOTE | 2021-11-11 16:34 | XRR_ITS ---
PROCEDURE INFORMATION: Exam: XR Chest Exam date and time: 11/11/2021 5:22 PM Age: 76 years old Clinical indication: Cough; Additional info: Dyspnea/cough TECHNIQUE: Imaging protocol: Radiologic exam of the chest. Views: 1 view. COMPARISON: CR XR chest 1V portable [id number] 10/02/2019 9:48 AM FINDINGS: Lungs: Mild diffuse coarsening of the lung parenchyma. No consolidation. Pleural spaces: No pleural effusion. No pneumothorax. Heart/Mediastinum: No cardiomegaly. Bones/joints: Visualized osseous structures are intact. XR/XR chest 1V portable [id number] IMPRESSION: No acute findings.
--- NOTE | 2021-11-11 16:40 | W.ED.NEUROSD ---
HPI - Neuro Symptoms/Deficit General: Chief Complaint: Neuro Symptoms/Deficit Stated Complaint: possible stroke, weakness, left side pain Time Seen by Provider: 11/11/21 16:25 Source: patient Mode of arrival: ambulatory Limitations: no limitations History of Present Illness: 76 yo male presents with [facility] ED PFSH: Medical History Abnormal prostate exam Coronary artery disease CVA (cerebral vascular accident) Elevated PSA H/O coronary angiogram Hypercholesterolemia Hypertension Seizure disorder Type 2 diabetes mellitus Surgical History History of back surgery History of cholecystectomy Hx of appendectomy S/P balloon angioplasty of pulmonary artery branches Family History Mother , AT AGE 86 Diabetes Cancer Sister Diabetes Father , AT AGE 73 Emphysema, unspecified Other CAD (coronary artery disease) Social History Smoking and tobacco status: never smoked Alcohol intake: never Marital status: Current occupational status: retired History of recent travel: No Course Vital Signs: Vital signs: Vital Signs Temperature 98.2 F 11/11/21 15:04 Pulse Rate 89 11/11/21 15:04 Respiratory Rate 16 11/11/21 15:04 Pulse Oximetry 96 11/11/21 15:04 Discharge Plan Discharge Condition: Stable Prescriptions: No Action hydrocodone-acetaminophen 10-325 mg tablet 1 tab PO Q6H PRN0RF metformin 500 mg tablet 500 mg PO DAILY 0RF alprazolam 1 mg tablet 1 mg PO TID 0RF amlodipine 5 mg tablet 5 mg PO DAILY 0RF glimepiride 1 mg tablet 1 mg PO DAILY 0RF phenobarbital 64.8 mg tablet 64.8 mg PO BID 0RF hydrochlorothiazide 25 mg tablet 25 mg PO DAILY 0RF lisinopril 40 mg tablet 40 mg PO DAILY 0RF Xarelto 20 mg tablet 20 mg PO DAILY 0RF Rx Instructions: PTS STATES THAT THHE PTS HASNT GOT THIS MEDICATION YET Referrals: Ute Hodges MD [Primary Care Provider] - Coding Level of Care Code ED Senior Asset Manager for [employer]
[2021-11-11 16:59] LABS: Basophils % 0.1 %; Eosinophils # 0.1 10^3/uL (0.0-0.8); Eosinophils % 1.1 %; Hematocrit 35.1 % (42.0-52.0); Hemoglobin 11.5 g/dL (11.7-16.6); Lymphocytes # 1.3 10^3/uL (0.8-4.8); Lymphocytes % 15.3 %; Mean Corpuscular HGB Conc 32.8 g/dL (30.0-36.0); Mean Corpuscular Hemoglobin 31.6 pg (28.0-34.0); Mean Corpuscular Volume 96.4 fl (80-94); Mean Platelet Volume 11.3 fL (7.4-10.4); Monocytes # 0.6 10^3/uL (0.2-0.9); Monocytes % 6.5 %; Neutrophils # 6.68 10^3/uL (1.8-7.7); Neutrophils % 76.7 %; Nucleated Red Blood Cells % 0 %; Platelet Count 237 10^3/cmm (130-400); Red Blood Count 3.64 10^6/uL (4.1-5.3); Red Cell Distribution Width 12.8 % (12.1-15.1); White Blood Count 8.7 10^3/uL (4.0-10.0)
--- NOTE | 2021-11-11 17:17 | PC.PHAR ---
PTS VERIFIED PTS MEDICATIONS-PTS STATES THE PT HASNT STARTED ELIQUIS 5MG BID YET STATES THEY ARE WAITING FOR IT TO COME IN THE MAIL STATES THE PT IS SUPPOSE TO START SOON IT ARRIVES- PTS STATES THE PT IS TAKING XANAX 0.5MG HS RX LAST FILLED 10/19/2020 90D/S FOR 0.5MG TID-PTS STATES THE PT TAKES PHENOBARBITAL 64.8MG BID STATES THEY GET FROM A [employer]-PTS STATES THE PT HAS A INHALER BUT ONLY USES PRN EXT MED HISTORY DOESNT SHOW WHEN LAST FILLED-PTS STATES WITHIN THE LAST 2 WEEKS THE PT HAS ONLY TAKEN HIS AM MEDS TWICE-PTS STATES SHE THOUGHT THE PT WAS TAKING LISINOPRIL 40MG DAILY [facility] LAST FILLED 04/16/2018 PTS STATES THEN THE PT IS NOT TAKING LISINOPRIL-NOTES ARE MADE IN THE PHARMACY COMMENTS
[2021-11-11 17:37] LABS: Troponin(5th) Baseline 70 ng/L (0-15)
[2021-11-11 17:38] LABS: Alanine Aminotransferase 15 U/L (0-41); Albumin Level 3.6 g/dL (3.5-5.2); Alkaline Phosphatase 226 IU/L (40-130); Blood Urea Nitrogen 48 mg/dL (8-23); Calcium 8.9 mg/dL (8.5-10.5); Carbon Dioxide 23 mmol/L (22-29); Chloride 102 mmol/L (98-107); Globulin 3.3 g/dL (1.3-4.6); Glucose 123 mg/dL (65-115); Osmolality Calculated 302 mOsm/kg (285-295); Sodium 139 mmol/L (136-145); Total Bilirubin 0.4 mg/dL (0.15-1.2); Total Protein 6.9 g/dL (6.6-8.7)
[2021-11-11 18:03] LABS: Anion Gap 18.4 (5-19); Aspartate Amino Transferase 19 U/L (0-40); Potassium 4.4 mmol/L (3.5-5.1)
--- NOTE | 2021-11-11 18:10 | W.ED.NEUROSD ---
HPI - Neuro Symptoms/Deficit General: Chief Complaint: Neuro Symptoms/Deficit Stated Complaint: possible stroke, weakness, left side pain Time Seen by Provider: 11/11/21 16:25 Source: patient Mode of arrival: ambulatory Limitations: no limitations History of Present Illness: 76-year-old male who comes with family states that over the last 2 weeks has been having increasing weakness and confusion. He states that he is had a hard time doing daily activities like putting his pants on and is being quite confused. Patient here is able to answer most my questions but is confused to time at this time. Denies any fever denies any chest pain he is quite hypertensive. Not on any blood pressure meds at home. Associated symptoms: Deny chest pain, nausea or vomiting Review of Systems Const: Denies: fever(s), chills, body aches or change in appetite Eyes: Denies: blurry vision or eye discomfort ENMT: Denies: throat pain or dental pain Card: Denies: chest pain Resp: Denies: dyspnea GI: Denies: abdominal pain, nausea, vomiting or diarrhea : Denies: dysuria Musc: Denies: neck pain or back pain Skin/Breast: Denies: rash Neuro: Reports: weakness in extremities and confusion Psych: Denies: depression Bob/Lymph: Denies: easy bruising All/Imm: Denies: urticaria PFSH ED PFSH: Medical History Abnormal prostate exam Coronary artery disease CVA (cerebral vascular accident) Elevated PSA H/O coronary angiogram Hypercholesterolemia Hypertension Seizure disorder Type 2 diabetes mellitus Surgical History History of back surgery History of cholecystectomy Hx of appendectomy S/P balloon angioplasty of pulmonary artery branches Family History Mother , AT AGE 86 Diabetes Cancer Sister Diabetes Father , AT AGE 73 Emphysema, unspecified Other CAD (coronary artery disease) Social History Smoking and tobacco status: never smoked Alcohol intake: never Marital status: Current occupational status: retired History of recent travel: No Physical Exam Const: COMMON NORMALS: negative for patient oriented x3 HENMT: COMMON NORMALS: normocephalic and atraumatic HEAD & SCALP: normocephalic and atraumatic Eye: COMMON NORMALS: Equal, round and reactive pupils present and EOMs intact bilaterally PUPIL: Yes Equal, round and reactive pupils present Neck/C-Spine: COMMON NORMALS: full ROM and supple Chest: COMMONS NORMALS: normal inspection of the chest and normal palpation of entire chest wall Resp: COMMON NORMALS: normal respiratory effort, No retractions, No use of accessory muscles and clear to auscultation bilaterally AUSCULTATION: clear to auscultation bilaterally Cardio: COMMON NORMALS: regular rate, regular rhythm and No murmurs present (Cardio) RATE: regular rate RHYTHM: regular rhythm GI: COMMON NORMALS: Normal to inspection, nondistended, normoactive bowel sounds present, Soft to palpation, non-tender and no masses PALPATION: Yes Soft to palpation Extremity: COMMON NORMALS: normal to inspection and full ROM Neuro: COMMON NORMALS: moves all extremities and no focal motor deficits; negative for patient oriented x3 Psych: COMMON NORMALS: mental status grossly normal, Normal thought process present and cooperative THOUGHT PROCESS: Normal thought process present Skin: COMMON NORMALS: no rashes or lesions noted and no wounds GENERAL SKIN EXAM: no rashes or lesions noted Course Vital Signs: Vital signs: Vital Signs Temperature 98.2 F 11/11/21 15:04 Pulse Rate 91 11/11/21 17:00 Respiratory Rate 16 11/11/21 15:04 Blood Pressure 216/126 11/11/21 17:21 Pulse Oximetry 98 11/11/21 17:00 MDM - Neuro Symptoms/Deficit Medical Decision Making Patient presents here with neurologic complaints and is going on for weeks he is hypertensive here with likely hypertensive emergency he has an elevated creatinine and troponin I spoke to hospitalist will admit to the ICU. Lab Data : 11/11/21 16:50 11/11/21 16:50 Radiology Impressions Chest X-Ray 11/11/21 16:34 IMPRESSION: No acute findings. Head CT 11/11/21 16:34 IMPRESSION: 1. No acute intracranial abnormality. 2. 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 Laboratory Results WBC 8.7 10^3/uL (4.0-10.0) 11/11/21 16:50 RBC 3.64 10^6/uL (4.1-5.3) L 11/11/21 16:50 Hgb 11.5 g/dL (11.7-16.6) L 11/11/21 16:50 Hct 35.1 % (42.0-52.0) L 11/11/21 16:50 MCV 96.4 fl (80-94) H 11/11/21 16:50 MCH 31.6 pg (28.0-34.0) 11/11/21 16:50 MCHC 32.8 g/dL (30.0-36.0) 11/11/21 16:50 RDW 12.8 % (12.1-15.1) 11/11/21 16:50 Plt Count 237 10^3/cmm (130-400) 11/11/21 16:50 MPV 11.3 fL (7.4-10.4) H 11/11/21 16:50 Neut % (Auto) 76.7 % 11/11/21 16:50 Lymph % (Auto) 15.3 % 11/11/21 16:50 Garfield % (Auto) 6.5 % 11/11/21 16:50 Eos % (Auto) 1.1 % 11/11/21 16:50 Baso % (Auto) 0.1 % 11/11/21 16:50 Neut # (Auto) 6.68 10^3/uL (1.8-7.7) 11/11/21 16:50 Lymph # (Auto) 1.3 10^3/uL (0.8-4.8) 11/11/21 16:50 Garfield # (Auto) 0.6 10^3/uL (0.2-0.9) 11/11/21 16:50 Eos # (Auto) 0.1 10^3/uL (0.0-0.8) 11/11/21 16:50 Baso # (Auto) 0.0 10^3/uL (0.0-0.1) 11/11/21 16:50 Nucleated RBC % (auto) 0 % 11/11/21 16:50 Nucleated RBCs # 0.0 /100WBC 11/11/21 16:50 Sodium 139 mmol/L (136-145) 11/11/21 16:50 Potassium 4.4 mmol/L (3.5-5.1) 11/11/21 16:50 Chloride 102 mmol/L (98-107) 11/11/21 16:50 Carbon Dioxide 23 mmol/L (22-29) 11/11/21 16:50 Anion Gap 18.4 (5-19) 11/11/21 16:50 BUN 48 mg/dL (8-23) H 11/11/21 16:50 Creatinine 3.9 mg/dL (0.7-1.2) H 11/11/21 16:50 GFR Calculation Not Reportable 11/11/21 16:50 Glucose 123 mg/dL (65-115) H 11/11/21 16:50 Calculated Osmolality 302 mOsm/kg (285-295) H 11/11/21 16:50 Calcium 8.9 mg/dL (8.5-10.5) 11/11/21 16:50 Total Bilirubin 0.4 mg/dL (0.15-1.2) 11/11/21 16:50 AST 19 U/L (0-40) 11/11/21 16:50 ALT 15 U/L (0-41) 11/11/21 16:50 Alkaline Phosphatase 226 IU/L (40-130) H 11/11/21 16:50 Troponin T Baseline 70 ng/L (0-15) H 11/11/21 16:50 Total Protein 6.9 g/dL (6.6-8.7) 11/11/21 16:50 Albumin 3.6 g/dL (3.5-5.2) 11/11/21 16:50 Globulin 3.3 g/dL (1.3-4.6) 11/11/21 16:50 EKG Data EKG 1: I personally reviewed and interpreted this EKG as follows: EKG interpretation date: 11/11/21 EKG interpretation time: 16:43 Interpretation: afib hr [address] or twave abnormalities qrs 97 qtc 419 Critical Care Time Critical Care Time: Critical Care Time: Yes Total Critical Care Time: 40 Attestation: The high probability of a clinically significant, sudden or life threatening deterioration of the patient's cv system(s) required my full and direct attention, intervention and personal management. The critical care time is as shown. This time is in addition to time spent performing any reported procedures but includes the following: [x] Data and vital sign review and interpretation [x] Patient assessment, examination and intervention [x] Documentation [x] Medication orders and management Discharge Plan Discharge Patient Disposition: Admitted As Inpatient Admit Provider: Yessenia Neff Clinical Impression: Hypertensive emergency, Acute kidney injury, Altered mental status Condition: Stable Coding Level of Care Code ED Investment Recovery Technician for Kathrine Fwd Exam Comprehensive
[2021-11-11] MEDS: hyDRALAzine 20 mg/mL INJ 1 mL 10 MG IVP (18:22)
[2021-11-11] MEDS: sodium chloride 0.9% 1,000 ML 999 ML IV (18:23)
--- NOTE | 2021-11-11 19:04 | ECG_ITS ---
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 Measurements Intervals [place] Rate: 101 P: MN: QRS: -4 QRSD: 93 T: 99 QT: 356 QTc: 463 Interpretive Statements ATRIAL FIBRILLATION WITH RAPID VENTRICULAR RESPONSE VOLTAGE CRITERIA FOR LVH [MEETS CRITERIA IN ONE OF: R(aVL), S(V1), R(V5), R(V5/V6)+S(V1)] ST DEVIATION AND MODERATE T-WAVE ABNORMALITY, CONSIDER LATERAL ISCHEMIA [-0.1+ mV T-WAVE IN I/aVL/V5/V6] Compared to ECG 11/11/2021 16:43:15 No significant changes Electronically Signed On 11-12-2021 20:59:00 CDT by Jorge Atkinson M.D. [id number]
--- NOTE | 2021-11-11 20:06 | PM.HP ---
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 He has not been wanting to take his medications for several weeks in the mornings. He has gotten more swelling in his legs. He also had a fall about 4 weeks ago at which time he fell on his back, since then has been having some pain in the left lower side of his abdomen. He has history of seizures for which she also follows with neurologist, although his denies any seizure-like activity. On arrival he is noted to have quite elevated blood pressure, 216/126 for which he is given IV hydralazine. CT of the head shows sequela of old infarcts in right MCA distribution and left occipital lobe. She is noted to have acute kidney injury, creatinine 3.9. For his back pain he has been taking Tylenol. He and his deny taking any NSAIDs. In case of cardiopulmonary arrest, he would not want CPR or intubation/mechanical ventilation. Review of Systems Const: Denies: fever(s), chills, body aches or malaise Eyes: Denies: change in vision, eye discomfort or eye redness ENMT: Denies: throat pain, oral sores or ear or mastoid pain Card: Denies: chest pain, edema, pre-syncope or dyspnea on exertion Resp: Denies: dyspnea, productive cough, change in phlegm color or hemoptysis GI: Reports: abdominal pain; Denies: nausea, vomiting, diarrhea, constipation, hematochezia or melena : Denies: flank pain, difficulty urinating, urinary frequency or hematuria Musc: Denies: back pain, joint swelling or joint redness Skin/Breast: Denies: rash or new lesions Neuro: Reports: confusion; Denies: numbness in extremities, weakness in extremities, dizziness or seizure-like activity Endo: Denies: polyuria or polydipsia Bob/Lymph: Denies: easy bleeding or tender lymph nodes All/Imm: Denies: urticaria or tongue swelling Medications/Allergies Home Medications Medication Instructions Recorded Confirmed Last Taken Type alprazolam 1 mg tablet 0.5 mg PO BEDTIME 10/02/19 11/11/21 Unknown History glimepiride 1 mg tablet 1 mg PO BEDTIME 10/02/19 11/11/21 Unknown History metformin 500 mg tablet 500 mg PO QAM 10/02/19 11/11/21 Unknown History phenobarbital 64.8 mg tablet 64.8 mg PO BID 10/02/19 11/11/21 Unknown History albuterol sulfate 90 mcg/actuation 2 puff INHALATION QID PRN 11/11/21 11/11/21 Unknown History aerosol inhaler (ProAir HFA) apixaban 5 mg tablet (Eliquis) 5 mg PO BID 11/11/21 11/11/21 Unknown History baclofen 10 mg tablet 10 mg PO BEDTIME 11/11/21 11/11/21 Unknown History citalopram 10 mg tablet 10 mg PO QAM 11/11/21 11/11/21 Unknown History diphenhydramine HCl 25 mg capsule 25 mg PO BID 11/11/21 11/11/21 Unknown History (Benadryl) ergocalciferol (vitamin D2) 1,250 50,000 unit PO Q7D 11/11/21 11/11/21 Unknown History mcg (50,000 unit) capsule furosemide 20 mg tablet 20 - 60 mg PO DAILY PRN 11/11/21 11/11/21 Unknown History ipratropium bromide 21 mcg (0.03 2 spray INTRANASAL TID PRN 11/11/21 11/11/21 Unknown History %) nasal spray potassium chloride 8 mEq 8 - 24 meq PO DAILY PRN 11/11/21 11/11/21 Unknown History tablet,extended release Allergies Allergy/AdvReac Type Severity Reaction Status Date / Time divalproex sodium Allergy Unknown Verified 10/02/19 09:45 morphine Allergy Unknown Verified 10/02/19 09:45 phenytoin Allergy Unknown Verified 10/02/19 09:45 PFSH Acute PFSH: Medical History Abnormal prostate exam Coronary artery disease CVA (cerebral vascular accident) Elevated PSA H/O coronary angiogram Hypercholesterolemia Hypertension Seizure disorder Type 2 diabetes mellitus Surgical History History of back surgery History of cholecystectomy Hx of appendectomy S/P balloon angioplasty of pulmonary artery branches Family History Mother , AT AGE 86 Diabetes Cancer Sister Diabetes Father , AT AGE 73 Emphysema, unspecified Other CAD (coronary artery disease) Social History Smoking and tobacco status: never smoked Alcohol intake: never Marital status: Current occupational status: retired History of recent travel: No Vitals/I&O/Wt Last Vital Signs Temp 98.2 F 11/11/21 15:04 Pulse 91 11/11/21 17:00 Resp 16 11/11/21 15:04 BP 216/126 11/11/21 17:21 Pulse Ox 98 11/11/21 17:00 Weight last 48 hrs Weight 80.286 kg Physical Exam Narrative: at bedside. Const: COMMON NORMALS: alert; negative for patient oriented x3 GENERAL APPEARANCE: cooperative ORIENTATION/CONSCIOUSNESS: Yes awake HENMT: COMMON NORMALS: normocephalic, EAC's normal, Normal external nose present and moist oral mucous membranes HEAD & SCALP: normocephalic NOSE: Normal external nose present EXTERNAL AUDITORY CANAL: EAC's normal Neck/C-Spine: COMMON NORMALS: no meningeal signs Chest: CHEST: Yes Symmetrical chest wall rise Resp: COMMON NORMALS: clear to auscultation bilaterally AUSCULTATION: clear to auscultation bilaterally Cardio: COMMON NORMALS: regular rate, regular rhythm and No murmurs present (Cardio) RATE: regular rate RHYTHM: regular rhythm GI: COMMON NORMALS: Normal to inspection, nondistended, normoactive bowel sounds present and Soft to palpation PALPATION: Yes Soft to palpation and Yes Tenderness to palpation present (GI) Details: LLQ and RUQ Extremity: GENERAL: Yes edema (2+ BL LE) Neuro: COMMON NORMALS: moves all extremities SENSORIUM/ORIENTATION: Yes alert MENINGEAL SIGNS: Yes no meningeal signs Psych: COMMON NORMALS: mental status grossly normal Skin: RASHES: no rashes WOUNDS: Yes wounds noted (Excoriations, shallow stasis ulcerations BL LE) OTHER: Minimal pinkish stasis erythema BL LE Data : 11/11/21 16:50 11/11/21 16:50 A&P Assessment and plan (1) Acute encephalopathy: Possibly encephalopathy secondary to hypertensive emergency. He is still not oriented, although is calm, cooperative, and even provide some history, other details filled in by his . Additionally he does have acute kidney injury, possible metabolic encephalopathy, may be also secondary to medication, either toxicity with reduced clearance, or as he has not taken his medications also in the last several weeks, possibly withdrawal from some of his medications. Has history of seizure, although no seizure-like activity has been noted. Phenobarbital level is pending. CT of the head shows old CVA. It appears she also has atrial fibrillation, and appears has not been taking his medications, reinforced with him to take his medications, please revisit. Check TSH Hold baclofen, Benadryl for now. Status: Acute (2) Hypertensive emergency: Improved with hydralazine 10 mg IV. Monitor blood pressure. Cardiac diet. With diabetes long-term may benefit from ACEI/ARB, although for now avoid due to kidney injury. For now continue with hydralazine, but consider addition of beta-keith depending on heart rates, ACEI/ARB likely on outpatient side after renal function stabilized. Status: Acute (3) Acute kidney injury: Unclear etiology of kidney injury. Denies any urinary symptoms. He is on Lasix at home, although seems he has not been taking them well. We will request for urine studies. CT abdomen pelvis sure to help assess for obstructive uropathy. Status: Acute (4) Alkaline phosphatase elevation: Check GGT. Unclear if after fall 4 weeks ago, or if related to biliary system. He does have some right upper quadrant pain. CT abdomen pelvis as above. History of cholecystectomy. Will also obtain an upper quadrant ultrasound. Follow-up liver parameters. Status: Acute (5) Left lower quadrant abdominal pain: Of about [address] abdomen pelvis. Status: Acute (6) Lower extremity edema: Bilateral lower extremity edema. Possible venous stasis, although does have history of coronary disease, stenting, and remote history. Has not been adherent with medications. Additionally assessed with TTE. Status: Acute (7) Paroxysmal A-fib: Cardiac monitoring. Check TSH. Magnesium. Continue Eliquis. Heart rates noted to be dipping into 50s occasionally in the past. Cardiac monitoring for now, consider addition of beta-keith. TTE Status: Acute Plan CAD: Once his medications are confirmed, please confirm medications he takes for CAD CVA HTN DM2 Seizure disorder Elevated PSA Attestations Medical Necessity Statement*: Place in observation for additional assessment and management of acute encephalopathy, hypertensive urgency, QUAN, abdominal pain, alk phos elevation, lower extremity edema with history of CAD. Coding Level of Care Code Acute Space Studies Faculty Member for Chg Fwd Exam Comprehensive Diagnoses Hypertensive emergency I16.1 Acute encephalopathy G93.40 Acute kidney injury N17.9 Alkaline phosphatase elevation R74.8 Left lower quadrant abdominal pain R10.32 Lower extremity edema R60.0 Paroxysmal A-fib I48.0
[2021-11-11 20:12] LABS: INR 1.09 (0.8-1.2)
[2021-11-11 20:48] LABS: Add Urine Microscopic? NO; Charge for UA Resulting for Rev
[2021-11-11 20:51] LABS: Bilirubin Urine Neg (Negative); Blood Urine Neg (Negative); Glucose Urine UA Norm (Normal); Ketones Urine Negative (Negative); Leukocyte Esterase Urine Negative (Negative); Nitrate Urine Negative (Negative); Protein Urine Neg (Negative); Specific Gravity, Urine 1.005 (1.005-1.030); Urine Appearance Clear (CLEAR); Urine Color Yellow (Yellow); Urobilinogen Urine Norm (Negative); pH Urine 7 (5-7)
--- NOTE | 2021-11-11 21:22 | US_ITS ---
WS: [id number] Complete ABDOMINAL ULTRASOUND HISTORY: hepatobiliary COMPARISON: CT 11/12/2021 Liver: 10.8 cm in length. Low normal liver. No mass or bile duct dilatation. Portal Vein: Normal hepatopetal flow with monophasic waveform. Gallbladder: Prior cholecystectomy. Pancreas: Poorly visualized. Pancreatic duct is top normal size. CBD: 0.4 cm. Right kidney: 11.3 cm x 7.3 cm x 6.5 cm. Normal size kidney. Severe hydronephrosis. No mass identifi ed. Left kidney: 10.8 cm x 6.4 cm x 6.0 cm. Severe hydronephrosis. No mass. Spleen: Normal size and echogenicity. Poorly visualized aorta and IVC. No ascites. US/US abdomen complete* [id number] IMPRESSION: 1. Severe bilateral hydronephrosis, RIGHT greater than LEFT. 2. Prior cholecystectomy. 3. Normal size spleen and liver.
--- NOTE | 2021-11-11 21:30 | PC.NURSE ---
Addendum entered by Yas Tripp RN 11/11/21 22:00: states that 2 weeks ago he was unable to dress himself and was needing help with just able everything , but then got to where he could do most by himself, but never like he was before 2 weeks ago. She also told his RN that Thursday he again had difficulty dressing himself and was unable to do things by himself and just moving slower than he had been. Original Note: states she found him on the ground 11/10 at 0600 and brought him to the hospital 11/11/2021 1500. She says that pt has been refusing his lasix pills and has only taken 2 pills in 2 weeks.
[2021-11-11 21:39] LABS: Gamma Glutamyl Transferase 476 U/L (8-61)
[2021-11-11 21:51] LABS: Urine Creatinine 46 mg/dL (39-259)
[2021-11-11 21:55] LABS: Urea Nitrogen,Urine Random 494 mg/dL
[2021-11-11] MEDS: ALPRAZolam 0.5 mg Tablet PO (21:58)
[2021-11-11] MEDS: hyDRALAzine 25 mg Tablet PO (21:58)
[2021-11-11 22:08] LABS: Glucose Point of Care 122 mg/dL (70-110)
--- NOTE | 2021-11-11 23:04 | ECG_ITS ---
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 Measurements Intervals [place] Rate: 95 P: MD: QRS: -2 QRSD: 90 T: 92 QT: 365 QTc: 461 Interpretive Statements ATRIAL FIBRILLATION VOLTAGE CRITERIA FOR LVH [MEETS CRITERIA IN ONE OF: R(aVL), S(V1), R(V5), R(V5/V6)+S(V1)] ST DEVIATION AND MODERATE T-WAVE ABNORMALITY, CONSIDER LATERAL ISCHEMIA [-0.1+ mV T-WAVE IN I/aVL/V5/V6] Compared to ECG 11/11/2021 21:28:42 No significant changes Electronically Signed On 11-12-2021 21:00:05 CDT by Jorge Atkinson M.D. [id number]
[2021-11-11 23:57] LABS: Troponin 5 6HR 72.78 ng/L (0-15)
[2021-11-12] VITALS (91 sets, daily range): BP systolic 109–221; BP diastolic 65–160; PULSE 59–160; RESP 12–58; TEMP 36.7; O2SAT 89–99; BMI 27.2
[2021-11-12 00:02] LABS: Troponin 5 6HR Delta 2.78 ng/L (0-12)
[2021-11-12] MEDS: guaiFENesin-dextromethorphan UDC 10 mL 5 ML PO (04:18)
[2021-11-12 05:01] LABS: Basophils % 0.2 %; Eosinophils # 0.1 10^3/uL (0.0-0.8); Eosinophils % 1.1 %; Hematocrit 35.1 % (42.0-52.0); Hemoglobin 11.6 g/dL (11.7-16.6); Lymphocytes # 1.2 10^3/uL (0.8-4.8); Lymphocytes % 13.2 %; Mean Corpuscular Hemoglobin 30.9 pg (28.0-34.0); Mean Corpuscular Volume 93.6 fl (80-94); Mean Platelet Volume 11.4 fL (7.4-10.4); Monocytes # 0.7 10^3/uL (0.2-0.9); Monocytes % 7.3 %; Neutrophils # 7.09 10^3/uL (1.8-7.7); Neutrophils % 77.9 %; Nucleated Red Blood Cells % 0 %; Platelet Count 260 10^3/cmm (130-400); Red Blood Count 3.75 10^6/uL (4.1-5.3); Red Cell Distribution Width 12.9 % (12.1-15.1); White Blood Count 9.1 10^3/uL (4.0-10.0)
[2021-11-12] MEDS: citalopram 20 mg Tablet 10 MG PO (05:21)
[2021-11-12 05:38] LABS: Alanine Aminotransferase 16 U/L (0-41); Albumin Level 3.7 g/dL (3.5-5.2); Alkaline Phosphatase 245 IU/L (40-130); Anion Gap 22.4 (5-19); Aspartate Amino Transferase 20 U/L (0-40); Blood Urea Nitrogen 51 mg/dL (8-23); Calcium 8.8 mg/dL (8.5-10.5); Carbon Dioxide 20 mmol/L (22-29); Chloride 105 mmol/L (98-107); Globulin 3.5 g/dL (1.3-4.6); Glucose 138 mg/dL (65-115); Magnesium 2.3 mg/dL (1.7-2.3); Osmolality Calculated 312 mOsm/kg (285-295); Potassium 4.4 mmol/L (3.5-5.1); Sodium 143 mmol/L (136-145); Thyroid Stimulating Hormone 1.54 uIU/mL (0.27-4.20); Total Bilirubin 0.6 mg/dL (0.15-1.2); Total Protein 7.2 g/dL (6.6-8.7)
[2021-11-12] MEDS: metoprolol tartrate 25 mg Tablet PO ×2 (05:53→20:43)
[2021-11-12 07:42] LABS: Glucose Point of Care 114 mg/dL (70-110)
--- NOTE | 2021-11-12 08:00 | XR_ITS ---
WS: [id number] XR chest 1V portable [id number] REASON FOR EXAM: cough, poss aspiration FINDINGS: The chest is unchanged compared to 11/11/2021. Significant tortuosity and ectasia of the thoracic aorta. Mild cardiac enlargement. No acute pulmonary parenchymal or pleural abnormality. XR/XR chest 1V portable [id number] IMPRESSION: Stable chest with no acute abnormality.
--- NOTE | 2021-11-12 08:19 | MRR_ITS ---
PROCEDURE INFORMATION: Exam: MR Head Without Contrast Exam date and time: 11/12/2021 5:02 PM Age: 76 years old Clinical indication: Altered mental status/memory loss; Additional info: Prostate CA mets TECHNIQUE: Imaging protocol: Magnetic resonance imaging of the head without contrast. COMPARISON: CT head wo con* [id number] 11/11/2021 5:33 PM FINDINGS: Brain: No acute infarct. Broad region of encephalomalacia in the right MCA distribution corresponding to old infarct. There is also focal encephalomalacia in the left occipital lobe corresponding to old infarct. Moderate diffuse cerebral atrophy and FLAIR T2 hyperintense signal abnormality within the periventricular and deep white matter tracts consistent with chronic small vessel ischemic disease. No evidence of focal mass or mass effect. No edema. Cerebral ventricles: Normal. No ventriculomegaly. Bones/joints: Unremarkable. Paranasal sinuses: Normal as visualized. No acute sinusitis. Mastoid air cells: Normal as visualized. No mastoid effusion. Orbital cavities: Unremarkable. Soft tissues: Unremarkable. MR/MR head wo con* [id number] IMPRESSION: 1. No acute findings. 2. Redemonstrated areas of broad encephalomalacia in the right MCA distribution as well as focal encephalomalacia in the left occipital lobe corresponding to old infarcts. 3. Moderate diffuse cerebral atrophy and sequela of chronic small vessel ischemic disease.
[2021-11-12 08:26] LABS: Adenovirus Not Detected (NOT DETECT); Chlamydia Pneumoniae Not Detected (NOT DETECT); Coronavirus 229E,HKU1,NL63,OC4 Not Detected (NOT DETECT); Human Metapneumovirus Not Detected (NOT DETECT); Human Rhinovirus/Enterovirus Not Detected (NOT DETECT); Influenza A Not Detected (NOT DETECT); Influenza A H1 Not Detected (NOT DETECT); Influenza A H1-2009 Not Detected (NOT DETECT); Influenza A H3 Not Detected (NOT DETECT); Influenza B Not Detected (NOT DETECT); Mycoplasma Pneumoniae Not Detected (NOT DETECT); Parainfluenza Virus Type 1 Not Detected (NOT DETECT); Parainfluenza Virus Type 2 Not Detected (NOT DETECT); Parainfluenza Virus Type 3 Not Detected (NOT DETECT); Parainfluenza Virus Type 4 Not Detected (NOT DETECT); Respiratory Syncytial Virus A Not Detected (NOT DETECT); Respiratory Syncytial Virus B Not Detected (NOT DETECT); SARS-COV-2 Not Detected (NOT DETECT)
--- NOTE | 2021-11-12 08:35 | PC.NURSE ---
Rounded with Dr. Orozco. Reviewed VS, meds, and, labs. Reported concern for aspiration, ok to hold PO meds until speech eval. Plan for esmolol drip, MRI, and consult with Dr. Ovalles. Report given to JUAN Galloway.
[2021-11-12] MEDS: esmolol drip 2,500 MG/250 ML PREMIX 24.36 MG IV (08:49)
--- NOTE | 2021-11-12 10:30 | PC.CHAP ---
Pastoral Care Encounter/Spiritual Assessment Type of Contact [] Declined rn lpn cna visit [] Patient/Family/Request visit [] Outpatient visit [] Follow-up visit [] Physician referral [] Code/Alert [x] Routine visit [] Staff referral [] Actively dying [] Patient sleeping [x] Family support [] [] Out of room [] Palliative care [] [] Receiving care in room [] Pre-surgical visit [] Trauma [] Long length of stay [x] ICU visit [] Other: Relational/Emotional Strength [] Patient feels connected with others/family/visitors/staff [] Distress [] Loneliness/isolation [] Abandonment Spirituality of Patient [] Person of [place] [] Attends Orthodoxy of their [place] [] Believes in Prayer [] Reads Bible or Mormonism materials [] There are Spiritual issues to be addressed Manager Clinical Applications Interventions [x] Prayer [x] Active listening [x] Non-anxious presence [x] Spiritual/emotional support [] Crisis/trauma care [] Spiritual counseling [] Bereavement support [] Provided bereavement packet [] Provided Bible/devotional materials [] Provided toy/stuffed animal, coloring book to patient or family member [] Provided Communion [] Anointing/[place] [] Salvation [x] Completed spiritual assessment [] Other: Impact on Illness or Injury [] Angry [] Fearful [] Anxious [] Often cries [] Exhaustion [] Unable to work [] Unable to attend bahai [] Unable to walk/stand [] Unable to read [] Unable to drive [] Unable to eat/drink [] Unable to sleep [] Unable to be with family [] Patient intubated [] Other: Summary Time spent with patient
--- NOTE | 2021-11-12 10:44 | P.PN_ITS ---
Subjective Subjective: This morning with passage of Virk catheter 1100 and a was obtained Creatinine 4.2 Patient is a poor historian I was able to talk with her is daughter and his this morning, in case of further worsening in his clinical status they are leaning towards palliative/comfort care, they are agreeable for MRI head to rule out metastatic lesions and recent stroke As per the patient was seen by Dr. Elaine in his clinic patient decided against any intervention for his possible prostate cancer He is showing ST depression, he is hypertensive, A. fib RVR started heparin drip, esmolol drip I have stopped his Eliquis Patient is stating that he was able to eat and there is no aphasia, however he has been aspirating as per the nursing staff Will request PT eval, Vitals/I&O/Wt Last Vital Signs Temp 98.6 F 11/11/21 21:10 Pulse 70 11/12/21 09:00 Resp 20 H 11/12/21 09:00 BP 161/114 11/12/21 09:00 Pulse Ox 93 11/12/21 09:00 11/11/21 11/12/21 11/12/21 22:59 06:59 14:59 Intake Total 1000 / 1000 28.42 / 28.42 Output Total 1150 / 1150 Balance 1000 / 1000 -1150 / -150 28.42 / 28.42 Weight last 48 hrs Weight 81.193 kg Weight 81.465 kg Weight 80.286 kg Physical Exam Narrative: Elderly male He is able to follow commands Poor historian Short attention span He is able to move his arms and legs without any difficulty Noted left-sided facial droop 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 S1, S2 variable Abdomen soft Looks dehydrated Hypertensive emergency diastolic pressure above 100 Abdomen is soft Virk cath draining clear urine Family at the bedside Urinary Catheter Management: Virk Latex: Cath Placed During This Visit: yes Reason for Continuing Indwelling Catheter: Acute Urinary Retention or Obstruction Urinary Catheter Date of Insertion: 11/12/21 Urinary Catheter Time of Insertion: 05:16 Data : 11/12/21 04:40 11/12/21 04:40 A&P Assessment and plan (1) Urine retention: Status: Acute (2) Paroxysmal A-fib: Status: Acute (3) Lower extremity edema: Status: Acute (4) Left lower quadrant abdominal pain: Status: Acute (5) Alkaline phosphatase elevation: Status: Acute (6) Acute encephalopathy: Status: Acute (7) Hypertensive emergency: Status: Acute (8) Acute kidney injury: Status: Acute (9) Altered mental status: Status: Acute (10) Abnormal prostate exam: Status: Acute (11) Elevated PSA: Status: Acute (12) Lower urinary tract symptoms (LUTS): Status: Acute (13) NSTEMI (non-ST elevated myocardial infarction): Status: Acute Plan NSTEMI Troponin leak and ST depression could be related to hypertensive emergency Start him on heparin drip Patient is DNR/DNI Requested echo Preserved ejection fraction acute CHF exacerbation X-ray showing pulm edema This could be related to hypertensive emergency Started esmolol drip secondary to underlying A. 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 Family and patient does not want histopathological diagnosis High alkaline phosphatase could be due to metastatic lytic lesions Metabolic encephalopathy related to bladder outlet obstruction, Concern for CVA We will follow-up with MRI DNR/DNI Requested speech therapy, n.p.o. for now Guarded prognosis Attestations Medical Necessity Statement*: Continue ICU management Time Spent in Patient Care: 35 Coding Level of Care Code Acute Contact Center Representative for Chg Fwd Diagnoses Urine retention R33.9 Paroxysmal A-fib I48.0 Lower extremity edema R60.0 Left lower quadrant abdominal pain R10.32 Alkaline phosphatase elevation R74.8 Acute encephalopathy G93.40 Hypertensive emergency I16.1 Acute kidney injury N17.9 Altered mental status R41.82 Abnormal prostate exam R39.89 Elevated PSA R97.20 Lower urinary tract symptoms (LUTS) R39.9 NSTEMI (non-ST elevated myocardial infarction) I21.4
--- NOTE | 2021-11-12 10:53 | USCV_ITS ---
Aron Paredes Age: 76 Gender: M : 1945 Exam Date: 11/12/2021 15:01 Ordering Phys: Ruslan Orozco MD Technologist: MARLA [place] [facility] [place]: CHRONIC HEART FAILURE BP: 182 / 107 HR: 67 Rhythm: Atrial fibrillation Technical Quality: Adequate MEASUREMENTS (Male / Female) Normal Values 2D ECHO LV Diastolic Diameter PLAX 5.0 cm 4.2 - 5.9 / 3.9 - 5.3 cm LV Systolic Diameter PLAX 3.5 cm IVS Diastolic Thickness 1.6 cm 0.6 - 1.0 / 0.6 - 0.9 cm IVS Systolic Thickness 2.2 cm LVPW Diastolic Thickness 1.4 cm 0.6 - 1.0 / 0.6 - 0.9 cm LVPW Systolic Thickness 1.9 cm LVOT Diameter 2.0 cm LV Ejection Fraction 2D Teich 57.5 % LV Ejection Fraction MOD 2C 62.6 % LV Ejection Fraction 2C AL 68.3 % LA Diameter 3.9 cm LA Width 3.8 cm LA Height 5.9 cm RA Width 4.2 cm RA Height 5.5 cm Aorta at Sinotubular Diameter 2.7 cm IVC Diameter 1.8 cm M-MODE Aortic Annulus Diameter 3.1 cm LA Ao Ratio MM 1.3 MV E Point Septal Separation 0.4 cm DOPPLER AV Peak Velocity 150.0 cm/s LVOT Peak Velocity 113.0 cm/s AV Area Cont Eq vti 2.7 cm squared AV Area Cont Eq pk 2.4 cm squared MV Peak Velocity 108.0 cm/s MV Area PHT 2.9 cm squared MV E' Velocity 65.0 cm/s Mitral E to MV E' Ratio 13.3 Mitral E to LV E' Lateral Ratio 12.6 Mitral E to LV E' Septal Ratio 14.1 TR Peak Velocity 279.7 cm/s TR Peak Gradient 31.3 mmHg TR Mean Velocity 222.5 cm/s TR Mean Gradient 21.2 mmHg TR Velocity Time Integral 88.1 cm TV Peak E Velocity 75.0 cm/s Right Atrial Pressure 3.0 mmHg Pulmonary Artery Systolic Pressu 34.3 mmHg FINDINGS Left Ventricle Normal left ventricular size. LV systolic function is normal with EF of 55-60%. No regional wall motion abnormalities. Right Ventricle The right ventricle is normal in size and function. Right Atrium The right atrium is normal in size. Left Atrium The left atrium is mildly dilated Mitral Valve Moderate mitral annular calcification. Mild mitral regurgitation. Aortic Valve Structurally normal aortic valve without significant sclerosis or stenosis. There is mild to moderate aortic regurgitation. Tricuspid Valve Structurally normal tricuspid valve without significant stenosis. Mild tricuspid regurgitation. Pulmonary artery systolic pressure is normal. Pulmonic Valve Not well-visualized Pericardium Normal pericardium without effusion. Aorta Normal ascending aorta dimension. IVC CONCLUSIONS LV systolic function is normal with EF of 55 to 60%. Left atrium is mildly dilated. Moderate mitral annular calcification. Mild mitral regurgitation. Mild to moderate aortic regurgitation. Mild tricuspid regurgitation. No comparison studies are available Calixto Cortés MD (Electronically Signed) Final Date: 12 November 2021 18:23 S
[2021-11-12 12:21] LABS: Glucose Point of Care 137 mg/dL (70-110)
[2021-11-12] MEDS: FUROsemide 10 mg/mL SDV 4mL 40 MG IVP (12:34)
--- NOTE | 2021-11-12 12:45 | PM.CONSULT ---
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 Orozco Attending Physician: Ruslan Orozco MD Primary Care Provider: Ute Hodges MD History of Present Illness History of Present Illness Aron Paredes is a 76 year old male who transferred I evaluated for the first time on 07/12/[address] Hodges for elevated PSA. At that time PSAs available to me. April 1999, April 2015 it was 86, June 2020 PSA 189. Currently > 4oo. Patient any further work-up until that visit. Apparently his family had encouraged him to pursue further diagnostic procedures and treatment but he persistently. Rectal exam on that first visit was grossly abnormal and clinical picture was clearly consistent with high risk prostate cancer. I recommended a prostate biopsy for at least palliative treatment options but he refused. I encouraged him to rethink that process. I have not seen him since. Admitted with confusion and work-ups revealed what appears to be widespread metastatic prostate cancer. Involved bony metastasis, lymphadenopathy, and reported meninges. The patient is adamant about no treatment. His family is well-informed. He has had a catheter placed. It also showed bladder out obstruction with bilateral hydronephrosis. Creatinine was elevated. Reviewed palliative measures. He may see substantial improvement in his renal function with bladder injury this may also involve ureteral orifice obstruction from local invasion from prostate cancer. Based on the patient's refusal to have any additional treatment I will not recommend any further measures but did discuss with the family the natural history of metastatic cancer. They are considering hospice type measures. It appears that short-term his greatest risk is renal failure. I will be available if necessary for further conversations.. Review of Systems Const: Reports: malaise; Denies: fever(s) or chills Eyes: Denies: eye discharge or eye redness ENMT: Denies: hoarseness Card: Reports: edema; Denies: chest pain or palpitations Resp: Denies: productive cough GI: Reports: abdominal pain and other (decreased appetite); Denies: vomiting : Reports: difficulty urinating; Denies: flank pain Musc: Reports: extremity pain and muscle weakness Skin/Breast: Denies: sores Neuro: Reports: confusion Psych: Reports: memory loss Endo: Reports: tired all the time Bob/Lymph: Denies: easy bleeding All/Imm: Denies: urticaria Medications/Allergies Home Medications Medication Instructions Recorded Confirmed Last Taken Type alprazolam 1 mg tablet 0.5 mg PO BEDTIME 10/02/19 11/11/21 Unknown History glimepiride 1 mg tablet 1 mg PO BEDTIME 10/02/19 11/11/21 Unknown History metformin 500 mg tablet 500 mg PO QAM 10/02/19 11/11/21 Unknown History phenobarbital 64.8 mg tablet 64.8 mg PO BID 10/02/19 11/11/21 Unknown History albuterol sulfate 90 mcg/actuation 2 puff INHALATION QID PRN 11/11/21 11/11/21 Unknown History aerosol inhaler (ProAir HFA) apixaban 5 mg tablet (Eliquis) 5 mg PO BID 11/11/21 11/11/21 Unknown History baclofen 10 mg tablet 10 mg PO BEDTIME 11/11/21 11/11/21 Unknown History citalopram 10 mg tablet 10 mg PO QAM 11/11/21 11/11/21 Unknown History diphenhydramine HCl 25 mg capsule 25 mg PO BID 11/11/21 11/11/21 Unknown History (Benadryl) ergocalciferol (vitamin D2) 1,250 50,000 unit PO Q7D 11/11/21 11/11/21 Unknown History mcg (50,000 unit) capsule furosemide 20 mg tablet 20 - 60 mg PO DAILY PRN 11/11/21 11/11/21 Unknown History ipratropium bromide 21 mcg (0.03 2 spray INTRANASAL TID PRN 11/11/21 11/11/21 Unknown History %) nasal spray potassium chloride 8 mEq 8 - 24 meq PO DAILY PRN 11/11/21 11/11/21 Unknown History tablet,extended release Allergies Allergy/AdvReac Type Severity Reaction Status Date / Time divalproex sodium Allergy Unknown Verified 10/02/19 09:45 morphine Allergy Unknown Verified 10/02/19 09:45 phenytoin Allergy Unknown Verified 10/02/19 09:45 Current Medications Generic Name Dose Route Start Last Admin Trade Name Freq PRN Reason Stop Dose Admin Alprazolam 0.5 mg 11/11/21 21:22 11/12/21 20:39 Alprazolam 0.5 Mg Tablet PO 0.5 mg BEDTIME RITU Administration Citalopram Hydrobromide 10 mg 11/12/21 06:00 11/12/21 05:21 Citalopram 20 Mg Tablet PO 10 mg QAM RITU Administration Furosemide 40 mg 11/12/21 10:55 11/12/21 12:34 Furosemide 10 Mg/Ml Sdv 4ml IVP 40 mg Q24H RITU Administration Guaifenesin/Dextromethorphan 5 ml 11/12/21 03:14 11/12/21 04:18 Guaifenesin-Dextromethorphan Udc 10 Ml PO 5 ml Q4H PRN Administration COUGH Heparin Sodium (Porcine) 0 unit 11/12/21 10:45 11/12/21 14:26 Heparin 5,000 Unit/Ml Inj 1 Ml IV 4,100 unit PRN PRN Administration Heparin weight-base protocol Protocol Hydralazine HCl 25 mg 11/11/21 21:22 11/12/21 20:39 Hydralazine 25 Mg Tablet PO 25 mg QID RITU Administration Esmolol HCl 2,500 mg in 250 mls @ 0 mls/hr 11/12/21 08:30 11/12/21 22:15 Brevibloc Drip IV 0 mcg/kg/min .Q0M RITU 0 mls/hr Titration Protocol Per Protocol Heparin Sodium/Sodium Chloride 25,000 unit in 500 mls @ 0 mls/hr 11/12/21 10:45 11/12/21 21:05 Heparin Drip IV 11.08 unit/kg/hr .Q0M RITU 17.99 mls/hr Titration Protocol Per Protocol Insulin Human Lispro 0 unit 11/11/21 21:22 11/12/21 20:39 Insulin Lispro 100 Unit/1 Ml SUBCUT 4 unit WM&BEDTIME RITU Administration Protocol Metoprolol Tartrate 25 mg 11/12/21 05:45 11/12/21 20:43 Metoprolol Tartrate 25 Mg Tablet PO 25 mg BID@0900,2100 RITU Administration Phenobarbital 64.8 mg 11/12/21 09:00 11/12/21 17:31 Phenobarbital 32.4 Mg Tablet PO Not Given BID RITU PFSH Acute PFSH: Medical History Abnormal prostate exam Coronary artery disease CVA (cerebral vascular accident) Elevated PSA H/O coronary angiogram Hypercholesterolemia Hypertension Seizure disorder Type 2 diabetes mellitus Surgical History History of back surgery History of cholecystectomy Hx of appendectomy S/P balloon angioplasty of pulmonary artery branches Family History Mother , AT AGE 86 Diabetes Cancer Sister Diabetes Father , AT AGE 73 Emphysema, unspecified Other CAD (coronary artery disease) Social History Smoking and tobacco status: never smoked Alcohol intake: never Marital status: Current occupational status: retired History of recent travel: No Vitals/I&O/Wt Last Vital Signs Temp 98.1 F 11/12/21 14:00 Pulse 72 11/13/21 04:30 Resp 17 11/13/21 04:30 BP 152/98 11/13/21 04:30 Pulse Ox 93 11/13/21 04:30 11/12/21 11/12/21 11/13/21 14:59 22:59 06:59 Intake Total 28.42 / 28.42 959.504 / 987.924 Output Total 4900 / 4900 2400 / 7300 Balance 28.42 / 28.42 -3940.496 / -3912.076 -2400 / -6312.076 Weight last 48 hrs Weight 179 lb Weight 179 lb 9.6 oz Weight 177 lb Physical Exam Const: COMMON NORMALS: no acute distress; negative for patient oriented x3 and negative for healthy appearing HENMT: COMMON NORMALS: normocephalic and atraumatic HEAD & SCALP: normocephalic and atraumatic Neck/C-Spine: OTHER: good rom Chest: OTHER: Normal movements Resp: OTHER: Non labored. 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 He does not want stenting. 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
[2021-11-12] MEDS: heparin 5,000 unit/mL INJ 1 mL IV (14:26)
[2021-11-12] MEDS: heparin drip 25,000 UNIT/500 ML PREMIX 23 UNIT IV (14:27)
[2021-11-12 17:32] LABS: Glucose Point of Care 155 mg/dL (70-110)
[2021-11-12] MEDS: insulin lispro 100 unit/1 mL SUBCUT ×2 (17:33→20:39)
[2021-11-12] MEDS: LORazepam 2 mg/mL INJ 1 mL 0.5 MG IVP (17:34)
--- NOTE | 2021-11-12 18:11 | PC.NURSE ---
Pt has been confused most of shift with brief periods of being oriented. He was able to stand up and use the bedside commode twice this shift with stand by assist. Family is at bedside and aware of condition. Dr. Orozco gave order for ativan to be given before MRI. Pt tolerated MRI well. Heparin and esmolol drips turned off for procedure.
[2021-11-12] MEDS: esmolol drip 2,500 MG/250 ML PREMIX 36.54 MG IV (19:07)
[2021-11-12 20:24] LABS: Glucose Point of Care 210 mg/dL (70-110)
[2021-11-12 20:28] LABS: Anion Gap 19.1 (5-19); Blood Urea Nitrogen 51 mg/dL (8-23); Calcium 8.6 mg/dL (8.5-10.5); Carbon Dioxide 22 mmol/L (22-29); Chloride 105 mmol/L (98-107); Glucose 202 mg/dL (65-115); Osmolality Calculated 313 mOsm/kg (285-295); Potassium 4.1 mmol/L (3.5-5.1); Sodium 142 mmol/L (136-145)
[2021-11-12] MEDS: ALPRAZolam 0.5 mg Tablet PO (20:39)
[2021-11-12] MEDS: hyDRALAzine 25 mg Tablet PO (20:39)
[2021-11-12 21:07] LABS: Partial Thromboplastin Time 111.4 SECONDS (23.9-36.7)
--- NOTE | 2021-11-12 21:22 | CTR_ITS ---
PROCEDURE INFORMATION: Exam: CT Abdomen And Pelvis Without Contrast Exam date and time: 11/12/2021 2:31 AM Age: 76 years old Clinical indication: Abdominal pain; Localized; Right; Prior surgery; Surgery type: Gb. Appy. Patient HX: C/O RT sided abd pain; Additional info: Pain rlq TECHNIQUE: Imaging protocol: Computed tomography of the abdomen and pelvis without contrast. Radiation optimization: All CT scans at this facility use at least one of these dose optimization techniques: automated exposure control; mA and/or kV adjustment per patient size (includes targeted exams where dose is matched to clinical indication); or iterative reconstruction. COMPARISON: US abdomen complete* [id number] 11/12/2021 1:02 AM RADIATION DOSE METRICS: Total DLP (mGy-cm): 961.33 FINDINGS: Lungs: There is slight mosaic pattern of attenuation of the lungs in association with small bilateral pleural effusions and minimal adjacent atelectasis. No consolidation. No pneumothorax. Heart: Mildly enlarged heart. Coronary atherosclerotic calcifications seen. No pericardial effusion. Liver: Normal. No mass. Gallbladder and bile ducts: Normal. No calcified stones. No ductal dilation. Pancreas: Normal. No ductal dilation. Spleen: Normal. No splenomegaly. Adrenal glands: Normal. No mass. Kidneys and ureters: See Urinary bladder finding. Stomach and bowel: There is diverticulosis without evidence of diverticulitis. Appendix: No evidence of appendicitis. Intraperitoneal space: Unremarkable. No free air. No significant fluid collection. Vasculature: Unremarkable. No abdominal aortic aneurysm. Lymph nodes: Unremarkable. No enlarged lymph nodes. Urinary bladder: The urinary bladder is markedly distended, resulting in [id number] bilateral hydronephrosis, right greater than left. No obstructing stone identified. Reproductive: Mildly enlarged prostate. Bones/joints: Degenerative changes of the spine seen. There is a few rounded sclerotic lesions scattered throughout the pelvis, the largest in the medial left iliac wing measuring 1.0 cm. Soft tissues: Unremarkable. CT/CT abdomen pelvis wo con [id number] IMPRESSION: 1. Enlarged prostate, in association with markedly distended urinary bladder and [id number] bilateral hydronephrosis, highly concerning for bladder outlet obstruction. 2. Imaging findings of pulmonary edema with small bilateral pleural effusions. 3. Scattered osseous sclerotic lesions in the pelvis, suggestive of metastatic disease. Given imaging findings, prostate malignancy should be considered.
[2021-11-13] VITALS (34 sets, daily range): BP systolic 119–173; BP diastolic 65–117; PULSE 60–86; RESP 13–22; TEMP 36.5–36.9; O2SAT 93–98
--- NOTE | 2021-11-13 00:04 | PC.NURSE ---
Family at bedside do not want patient to be turned every 2hrs, they want him to be left alone to sleep.
[2021-11-13 05:18] LABS: Basophils % 0.2 %; Eosinophils # 0.1 10^3/uL (0.0-0.8); Hematocrit 38.9 % (42.0-52.0); Hemoglobin 13.1 g/dL (11.7-16.6); Lymphocytes # 1.2 10^3/uL (0.8-4.8); Mean Corpuscular HGB Conc 33.7 g/dL (30.0-36.0); Mean Corpuscular Hemoglobin 31.3 pg (28.0-34.0); Mean Corpuscular Volume 92.8 fl (80-94); Mean Platelet Volume 11.2 fL (7.4-10.4); Monocytes # 0.5 10^3/uL (0.2-0.9); Monocytes % 6.2 %; Neutrophils # 6.58 10^3/uL (1.8-7.7); Neutrophils % 78.4 %; Nucleated Red Blood Cells % 0 %; Platelet Count 265 10^3/cmm (130-400); Red Blood Count 4.19 10^6/uL (4.1-5.3); Red Cell Distribution Width 12.8 % (12.1-15.1); White Blood Count 8.4 10^3/uL (4.0-10.0)
[2021-11-13 05:40] LABS: Alanine Aminotransferase 12 U/L (0-41); Albumin Level 3.3 g/dL (3.5-5.2); Alkaline Phosphatase 215 IU/L (40-130); Anion Gap 19.2 (5-19); Aspartate Amino Transferase 18 U/L (0-40); Blood Urea Nitrogen 49 mg/dL (8-23); Calcium 8.9 mg/dL (8.5-10.5); Carbon Dioxide 25 mmol/L (22-29); Chloride 104 mmol/L (98-107); Globulin 3.4 g/dL (1.3-4.6); Glucose 103 mg/dL (65-115); Magnesium 2.2 mg/dL (1.7-2.3); Osmolality Calculated 311 mOsm/kg (285-295); Potassium 4.2 mmol/L (3.5-5.1); Sodium 144 mmol/L (136-145); Total Bilirubin 0.4 mg/dL (0.15-1.2); Total Protein 6.7 g/dL (6.6-8.7)
--- NOTE | 2021-11-13 06:50 | PC.NURSE ---
Bedside report completed with Lianna Paniagua RN. Allergy and AND bracelets applied at this time.
[2021-11-13 07:15] LABS: Glucose Point of Care 118 mg/dL (70-110)
[2021-11-13] MEDS: hyDRALAzine 25 mg Tablet PO ×4 (08:00→20:33)
[2021-11-13] MEDS: metoprolol tartrate 25 mg Tablet PO ×2 (08:00→20:32)
[2021-11-13] MEDS: PHENobarbital 32.4 mg Tablet 64.8 MG PO ×2 (08:01→19:11)
[2021-11-13] MEDS: citalopram 20 mg Tablet 10 MG PO (08:01)
[2021-11-13] MEDS: acetaminophen 325 mg Tablet 650 MG PO (08:10)
--- NOTE | 2021-11-13 09:24 | PC.NURSE ---
Pt drinking strawberry milkshake he requested for breakfast
--- NOTE | 2021-11-13 10:48 | PC.CHAP ---
Pastoral Care Encounter/Spiritual Assessment Type of Contact [] Declined building construction contractor visit [] Patient/Family/Request visit [] Outpatient visit [] Follow-up visit [] Physician referral [] Code/Alert [x] Routine visit [] Staff referral [] Actively dying [] Patient sleeping [x] Family support [] [] Out of room [] Palliative care [] [] Receiving care in room [] Pre-surgical visit [] Trauma [] Long length of stay [x] ICU visit [] Other: Relational/Emotional Strength [] Patient feels connected with others/family/visitors/staff [] Distress [] Loneliness/isolation [] Abandonment Spirituality of Patient [] Person of [place] [] Attends Gnosticist of their [place] [] Believes in Prayer [] Reads Bible or Church materials [] There are Spiritual issues to be addressed 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 [x] Prayer [x] Active listening [x] Non-anxious presence [x] Spiritual/emotional support [] Crisis/trauma care [] Spiritual counseling [] Bereavement support [] Provided bereavement packet [] Provided Bible/devotional materials [] Provided toy/stuffed animal, coloring book to patient or family member [] Provided Communion [] Anointing/[place] [] Salvation [x] Completed spiritual assessment [] Other: Impact on Illness or Injury [] Angry [] Fearful [] Anxious [] Often cries [] Exhaustion [] Unable to work [] Unable to attend denominational [] Unable to walk/stand [] Unable to read [] Unable to drive [] Unable to eat/drink [] Unable to sleep [] Unable to be with family [] Patient intubated [] Other: Summary patient requested 2nd strawberry milk shake... the kitchen stated it would be done by 10:30 am... patient also requested ice chips... gave him a small pitcher rehab rn spent with patient
--- NOTE | 2021-11-13 10:49 | PC.OT ---
PER REPORT: PATIENT IS GOING TO GO TO HOSPICE SERVICES; DISCHARGE OT.
--- NOTE | 2021-11-13 11:32 | P.PN_ITS ---
Subjective Subjective: Patient and family decided to heparin drip to be turned off today Adequate urine output patient is polyuric Creatinine 3.5 Potassium 4.2 Patient is awake and alert able to communicate Family is at the bedside Vitals/I&O/Wt Last Vital Signs Temp 98.2 F 11/13/21 07:30 Pulse 78 11/13/21 10:30 Resp 13 11/13/21 10:30 BP 144/86 11/13/21 10:30 Pulse Ox 96 11/13/21 10:30 11/12/21 11/13/21 11/13/21 22:59 06:59 14:59 Intake Total 959.504 / 987.924 161.91 / 1149.834 596.217 / 596.217 Output Total 4900 / 4900 2400 / 7300 Balance -3940.496 / -3912.076 -2238.09 / -6150.166 596.217 / 596.217 Weight last 48 hrs Weight 72.983 kg Weight 81.193 kg Weight 81.465 kg Weight 80.286 kg Physical Exam Narrative: Patient looks euvolemic Short attention span Family is at the bedside Adequate urine output Abdomen is soft Bilateral breath sounds are adventitious rhonchi or crackles Abdomen is soft Hemodynamically stable A. fib without RVR Urinary Catheter Management: Virk Latex: Cath Placed During This Visit: yes Reason for Continuing Indwelling Catheter: Accurate Measurement of Urinary Output in Critically Ill Patients Urinary Catheter Date of Insertion: 11/12/21 Urinary Catheter Time of Insertion: 05:16 Data : 11/13/21 05:09 11/13/21 05:09 A&P Assessment and plan (1) Elevated PSA: Status: Acute (2) Lower urinary tract symptoms (LUTS): Status: Acute (3) Abnormal prostate exam: Status: Acute (4) Hypertensive emergency: Status: Acute (5) Acute kidney injury: Status: Acute (6) Altered mental status: Status: Acute (7) Acute encephalopathy: Status: Acute (8) Alkaline phosphatase elevation: Status: Acute (9) Left lower quadrant abdominal pain: Status: Acute (10) Paroxysmal A-fib: Status: Acute (11) Urine retention: Status: Acute (12) NSTEMI (non-ST elevated myocardial infarction): Status: Acute (13) Bilateral hydronephrosis: Status: Acute (14) Prostate cancer metastatic to bone: Status: Acute (15) Prostate cancer metastatic to intrapelvic lymph node: Status: Acute (16) 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 fib without RVR Preserved ejection fraction He cannot take Eliquis because of high creatinine, Keep him on AV yadira blocking agents Off esmolol drip Preserve ejection fraction heart failure exacerbation related to hypertensive emergency: Improved, polyuric Patient is currently on room air Acute on chronic kidney disease, he is polyuric, creatinine slightly improved, discontinue Lasix, post renal obstructive uropathy bladder outlet obstruction Type 2 diabetes currently on sliding scale High alk phos today related to bone mets Metabolic encephalopathy related to prostate cancer, urinary obstruction: Resolved Poor prognosis Hospice care Currently on ground dysphagia diet Attestations Medical Necessity Statement*: He can be transferred out advised patient can be transferred out of ICU Time Spent in Patient Care: 30 Coding Level of Care Code Acute Nursing Project Coordinator for Chg Fwd Diagnoses Elevated PSA R97.20 Lower urinary tract symptoms (LUTS) R39.9 Abnormal prostate exam R39.89 Hypertensive emergency I16.1 Acute kidney injury N17.9 Altered mental status R41.82 Acute encephalopathy G93.40 Alkaline phosphatase elevation R74.8 Left lower quadrant abdominal pain R10.32 Paroxysmal A-fib I48.0 Urine retention R33.9 NSTEMI (non-ST elevated myocardial infarction) I21.4 Bilateral hydronephrosis N13.30 Prostate cancer metastatic to bone C61; C79.51 Prostate cancer metastatic to intrapelvic lymph node C61; C77.5 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
[2021-11-13 11:36] LABS: Glucose Point of Care 297 mg/dL (70-110)
[2021-11-13] MEDS: insulin lispro 100 unit/1 mL SUBCUT (11:40)
[2021-11-13] MEDS: LORazepam 0.5 mg Tablet 0.25 MG PO (13:29)
--- NOTE | 2021-11-13 15:50 | PC.NURSE ---
Report called to [facility] and given to JUAN Knapp.
--- NOTE | 2021-11-13 16:10 | PC.NURSE ---
Pt transferred to room 254. Update given to JUAN Knapp. All belongings with patient and family.
[2021-11-13] MEDS: oxyCODONE 5 mg IR Tab/Cap PO (19:12)
[2021-11-13] MEDS: ALPRAZolam 0.5 mg Tablet PO (20:32)
[2021-11-13] MEDS: guaiFENesin-dextromethorphan UDC 10 mL 5 ML PO (20:33)
[2021-11-14] MEDS: citalopram 20 mg Tablet 10 MG PO (05:16)
[2021-11-14 05:32] LABS: Alanine Aminotransferase 14 U/L (0-41); Albumin Level 2.9 g/dL (3.5-5.2); Alkaline Phosphatase 183 IU/L (40-130); Anion Gap 12.7 (5-19); Aspartate Amino Transferase 19 U/L (0-40); Blood Urea Nitrogen 40 mg/dL (8-23); Calcium 8.3 mg/dL (8.5-10.5); Carbon Dioxide 28 mmol/L (22-29); Chloride 102 mmol/L (98-107); Globulin 3.3 g/dL (1.3-4.6); Glucose 138 mg/dL (65-115); Osmolality Calculated 300 mOsm/kg (285-295); Potassium 3.7 mmol/L (3.5-5.1); Sodium 139 mmol/L (136-145); Total Bilirubin 0.4 mg/dL (0.15-1.2); Total Protein 6.2 g/dL (6.6-8.7)
[2021-11-14 07:54] VITALS: PULSE 74; RESP 16; O2SAT 95
[2021-11-14 08:00] VITALS: BP 164/91; PULSE 75; RESP 18; O2SAT 96
[2021-11-14] MEDS: hyDRALAzine 25 mg Tablet PO ×2 (08:31→12:43)
[2021-11-14] MEDS: PHENobarbital 32.4 mg Tablet 64.8 MG PO (08:31)
[2021-11-14] MEDS: metoprolol tartrate 25 mg Tablet PO (08:31)
[2021-11-14] MEDS: LORazepam 0.5 mg Tablet 0.25 MG PO ×2 (08:38→12:43)
[2021-11-14 11:06] VITALS: RESP 18
[2021-11-14] MEDS: oxyCODONE 5 mg IR Tab/Cap PO (11:06)
--- NOTE | 2021-11-14 11:33 | P.DS_ITS ---
Discharge Providers Date of Admission: 11/11/21 18:27 Date of Discharge: November 14, 2021 Attending Provider at Admission: Yessenia Neff MD Attending Provider at Discharge: Ruslan Orozco MD Primary Care Provider: Ute Hodges MD Diagnoses at Discharge Discharge Diagnosis (1) Elevated PSA: Status: Acute (2) Lower urinary tract symptoms (LUTS): Status: Acute (3) Abnormal prostate exam: Status: Acute (4) Hypertensive emergency: Status: Acute (5) Acute kidney injury: Status: Acute (6) Altered mental status: Status: Acute (7) Acute encephalopathy: Status: Acute (8) Alkaline phosphatase elevation: Status: Acute (9) Left lower quadrant abdominal pain: Status: Acute (10) Paroxysmal A-fib: Status: Acute (11) Urine retention: Status: Acute (12) NSTEMI (non-ST elevated myocardial infarction): Status: Acute (13) Bilateral hydronephrosis: Status: Acute (14) Prostate cancer metastatic to bone: Status: Acute (15) Prostate cancer metastatic to intrapelvic lymph node: Status: Acute (16) 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 I started him on heparin drip along esmolol for A. fib RVR. His Eliquis was discontinued because of worsening creatinine. He had post renal obstruction related to be prostate. CT scan was requested of abdomen pelvis which showed bladder outlet obstruction related to prostate cancer with metastatic lesions. MRI head did not show any metastatic lesions or acute CVA. Patient creatinine did improve after placement of Virk catheter. Dr. Elaine evaluated the patient in ICU. Please see his note for further details. Patient and his family decided to opt for hospice care. Patient is being discharged home on hospice care. His PSA level is above 400. 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 S1, S2 variable Abdomen soft Looks dehydrated Hypertensive emergency diastolic pressure above 100 Abdomen is soft Virk cath draining clear urine Urinary Catheter Management: Virk Latex: Cath Placed During This Visit: yes Reason for Continuing Indwelling Catheter: Acute Urinary Retention or Obstruction Urinary Catheter Date of Insertion: 11/12/21 Urinary Catheter Time of Insertion: 05:16 Discharge Data Studies Completed and Pending Completed Studies During Hospitalization Category Date Time Status CT abdomen pelvis wo con [id number] Routine Cat Scan 11/12/21 21:[address] head wo con* [id number] Stat Cat Scan 11/11/21 16:34 Completed CXRP [XR chest 1V portable [id number]] Routine Exams 11/12/21 08:00 Completed XR chest 1V portable [id number] Stat Exams 11/11/21 16:34 Completed MR head wo con* [id number] Routine MRI 11/12/21 08:19 Completed CV. echo complete* [id number] Routine Ultrasound 11/12/21 10:53 Completed US abdomen complete* [id number] Routine Ultrasound 11/11/21 21:22 Completed Radiology Impressions Head CT 11/11/21 16:34 IMPRESSION: 1. No acute intracranial abnormality. 2. 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 Abdomen Ultrasound 11/11/21 21:22 IMPRESSION: 1. Severe bilateral hydronephrosis, RIGHT greater than LEFT. 2. Prior cholecystectomy. 3. Normal size spleen and liver. Chest X-Ray 11/12/21 08:00 IMPRESSION: Stable chest with no acute abnormality. Head MRI 11/12/21 08:19 IMPRESSION: 1. No acute findings. 2. Redemonstrated areas of broad encephalomalacia in the right MCA distribution as well as focal encephalomalacia in the left occipital lobe corresponding to old infarcts. 3. Moderate diffuse cerebral atrophy and sequela of chronic small vessel ischemic disease. Abdomen/Pelvis CT 11/12/21 21:22 IMPRESSION: 1. Enlarged prostate, in association with markedly distended urinary bladder and [id number] bilateral hydronephrosis, highly concerning for bladder outlet obstruction. 2. Imaging findings of pulmonary edema with small bilateral pleural effusions. 3. Scattered osseous sclerotic lesions in the pelvis, suggestive of metastatic disease. Given imaging findings, prostate malignancy should be considered. Laboratory Results WBC 8.4 10^3/uL (4.0-10.0) 11/13/21 05:09 RBC 4.19 10^6/uL (4.1-5.3) 11/13/21 05:09 Hgb 13.1 g/dL (11.7-16.6) 11/13/21 05:09 Hct 38.9 % (42.0-52.0) L 11/13/21 05:09 MCV 92.8 fl (80-94) 11/13/21 05:09 MCH 31.3 pg (28.0-34.0) 11/13/21 05:09 MCHC 33.7 g/dL (30.0-36.0) 11/13/21 05:09 RDW 12.8 % (12.1-15.1) 11/13/21 05:09 Plt Count 265 10^3/cmm (130-400) 11/13/21 05:09 MPV 11.2 fL (7.4-10.4) H 11/13/21 05:09 Neut % (Auto) 78.4 % 11/13/21 05:09 Lymph % (Auto) 14.0 % 11/13/21 05:09 [place] % (Auto) 6.2 % 11/13/21 05:09 Eos % (Auto) 1.0 % 11/13/21 05:09 Baso % (Auto) 0.2 % 11/13/21 05:09 Neut # (Auto) 6.58 10^3/uL (1.8-7.7) 11/13/21 05:09 Lymph # (Auto) 1.2 10^3/uL (0.8-4.8) 11/13/21 05:09 [place] # (Auto) 0.5 10^3/uL (0.2-0.9) 11/13/21 05:09 Eos # (Auto) 0.1 10^3/uL (0.0-0.8) 11/13/21 05:09 Baso # (Auto) 0.0 10^3/uL (0.0-0.1) 11/13/21 05:09 Nucleated RBC % (auto) 0 % 11/13/21 05:09 Nucleated RBCs # 0.0 /100WBC 11/13/21 05:09 PT 14.50 SECONDS (12.1-14.9) 11/11/21 19:44 INR 1.09 (0.8-1.2) 11/11/21 19:44 APTT 104.0 SECONDS (23.9-36.7) H 11/13/21 05:09 Sodium 139 mmol/L (136-145) 11/14/21 04:50 Potassium 3.7 mmol/L (3.5-5.1) 11/14/21 04:50 Chloride 102 mmol/L (98-107) 11/14/21 04:50 Carbon Dioxide 28 mmol/L (22-29) 11/14/21 04:50 Anion Gap 12.7 (5-19) 11/14/21 04:50 BUN 40 mg/dL (8-23) H 11/14/21 04:50 Creatinine 2.5 mg/dL (0.7-1.2) H 11/14/21 04:50 GFR Calculation Not Reportable 11/14/21 04:50 Glucose 138 mg/dL (65-115) H 11/14/21 04:50 POC Glucose 297 mg/dL (70-110) H 11/13/21 11:33 Calculated Osmolality 300 mOsm/kg (285-295) H 11/14/21 04:50 Calcium 8.3 mg/dL (8.5-10.5) L 11/14/21 04:50 Magnesium 2.2 mg/dL (1.7-2.3) 11/13/21 05:09 Total Bilirubin 0.4 mg/dL (0.15-1.2) 11/14/21 04:50 GGT 476 U/L (8-61) H 11/11/21 19:44 AST 19 U/L (0-40) 11/14/21 04:50 ALT 14 U/L (0-41) 11/14/21 04:50 Alkaline Phosphatase 183 IU/L (40-130) H 11/14/21 04:50 Troponin T Baseline 70 ng/L (0-15) H 11/11/21 16:50 Troponin T 120 Minute 71.40 ng/L (0-15) H 11/11/21 19:44 Delta Troponin T 1.40 ABS# (0-10) 11/11/21 19:44 Troponin T Hi Sens 6Hr 72.78 ng/L (0-15) H 11/11/21 23:10 Troponin T Hi Sens 6Hr Delta 2.78 ng/L (0-12) 11/11/21 23:10 Total Protein 6.2 g/dL (6.6-8.7) L 11/14/21 04:50 Albumin 2.9 g/dL (3.5-5.2) L 11/14/21 04:50 Globulin 3.3 g/dL (1.3-4.6) 11/14/21 04:50 Prostate Specific Ag 465.100 ng/mL (0-4) H 11/11/21 23:10 TSH 1.54 uIU/mL (0.27-4.20) 11/12/21 04:40 Urine Color Yellow (Yellow) 11/11/21 20:30 Urine Appearance Clear (CLEAR) 11/11/21 20:30 Urine pH 7 (5-7) 11/11/21 20:30 Ur Specific [place] 1.005 (1.005-1.030) 11/11/21 20:30 Urine Protein Neg (Negative) 11/11/21 20:30 Urine Glucose (UA) Norm (Normal) 11/11/21 20:30 Urine Ketones Negative (Negative) 11/11/21 20:30 Urine Blood Neg (Negative) 11/11/21 20:30 Urine Nitrate Negative (Negative) 11/11/21 20:30 Urine Bilirubin Neg (Negative) 11/11/21 20:30 Urine Urobilinogen Norm mg/dL (Negative) 11/11/21 20:30 Ur Leukocyte Esterase Negative (Negative) 11/11/21 20:30 Ur Random Urea Nitrogn 494 mg/dL 11/11/21 20:30 Urine Creatinine 46 mg/dL (39-259) 11/11/21 20:30 Phenobarbital 16.4 ug/mL (10-30) 11/11/21 19:44 Coronavirus 229E (PCR) Not detected (NOT DETECT) 11/12/21 06:18 SARS-CoV-2 (PCR) Not detected (NOT DETECT) 11/12/21 06:18 Vitals Last Vital Signs Temp 98.5 F 11/13/21 20:00 Pulse 75 11/14/21 08:00 Resp 18 11/14/21 11:06 BP 164/91 11/14/21 08:00 Pulse Ox 96 11/14/21 08:00 Discharge Plan Discharge Patient Disposition: Hospice - Home Condition: Stable Prescriptions: New oxycodone-acetaminophen 10-300 mg tablet 1 tab PO Q8H PRN (Reason: pain) Qty: 20 0RF Continued alprazolam 1 mg tablet 0.5 mg PO BEDTIME 0RF baclofen 10 mg tablet 10 mg PO BEDTIME 0RF Benadryl 25 mg Capsule 25 mg PO BID 0RF ProAir HFA 90 mcg/actuation Hfa Aerosol Inhaler 2 puff INHALATION QID PRN (Reason: Shortness Of Breath) 0RF Discontinued metformin 500 mg tablet 500 mg PO QAM 0RF glimepiride 1 mg tablet 1 mg PO BEDTIME 0RF phenobarbital 64.8 mg tablet 64.8 mg PO BID 0RF citalopram 10 mg tablet 10 mg PO QAM 0RF potassium chloride 8 mEq tablet extended release 8 - 24 meq PO DAILY PRN (Reason: take with lasix) 0RF furosemide 20 mg tablet 20 - 60 mg PO DAILY PRN (Reason: Edema) 0RF ergocalciferol (vitamin D2) 1,250 mcg (50,000 unit) capsule 50,000 unit PO Q7D 0RF Rx Instructions: on sat ipratropium bromide 21 mcg (0.03 %) spray,non-aerosol 2 spray INTRANASAL TID PRN (Reason: Runny Nose) 0RF Eliquis 5 mg Tablet 5 mg PO BID 0RF Rx Instructions: PT NOT STARTED YET Discharge Orders: Discharge Order (Routine); Ordered 11/14/21 Ordered By: Ruslan Orozco Referrals: Ute Hodges MD [Primary Care Provider] - Discharge Attestations Time Spent in Discharge Care*: less than 30 min Quality Metrics Clinical Quality Measures [ No reported AMI, CVA or VTE this stay] Coding Level of Care Code Acute Chg FW DC note Diagnoses Elevated PSA R97.20 Lower urinary tract symptoms (LUTS) R39.9 Abnormal prostate exam R39.89 Hypertensive emergency I16.1 Acute kidney injury N17.9 Altered mental status R41.82 Acute encephalopathy G93.40 Alkaline phosphatase elevation R74.8 Left lower quadrant abdominal pain R10.32 Paroxysmal A-fib I48.0 Urine retention R33.9 NSTEMI (non-ST elevated myocardial infarction) I21.4 Bilateral hydronephrosis N13.30 Prostate cancer metastatic to bone C61; C79.51 Prostate cancer metastatic to intrapelvic lymph node C61; C77.5 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
== END 2021-11-14 15:05 | disposition hospice, home (50) | DRG 280 ==
LOC: ER 16:46 → ICU 19:28 → MEDSURG 11-13 16:09
PROVIDERS: Family Medicine; Internal Medicine; Admitting Provider Internal Medicine; Emergency Provider Emergency Medicine; PCP Family Medicine; Visit Provider Internal Medicine
DX: I16.1 Hypertensive emergency (principal); G93.41 Metabolic encephalopathy; I21.A1 Myocardial infarction type 2; I50.33 Acute on chronic diastolic (congestive) heart failure; N17.9 Acute kidney failure, unspecified; C79.51 Secondary malignant neoplasm of bone; C77.5 Secondary and unspecified malignant neoplasm of intrapelvic lymph nodes; C79.40 Secondary malignant neoplasm of unspecified part of nervous system; N13.8 Other obstructive and reflux uropathy; N13.39 Other hydronephrosis; I13.0 Hypertensive heart and chronic kidney disease with heart failure and stage 1 through stage 4 chronic kidney disease, or unspecified chronic kidney disease; N18.9 Chronic kidney disease, unspecified; E11.22 Type 2 diabetes mellitus with diabetic chronic kidney disease; C61 Malignant neoplasm of prostate; R10.32 Left lower quadrant pain; R97.20 Elevated prostate specific antigen [PSA]; R74.8 Abnormal levels of other serum enzymes; I48.0 Paroxysmal atrial fibrillation; N40.1 Benign prostatic hyperplasia with lower urinary tract symptoms; R53.1 Weakness; R33.8 Other retention of urine; I25.10 Atherosclerotic heart disease of native coronary artery without angina pectoris; E78.00 Pure hypercholesterolemia, unspecified; G40.909 Epilepsy, unspecified, not intractable, without status epilepticus; Z79.01 Long term (current) use of anticoagulants; Z86.73 Personal history of transient ischemic attack (TIA), and cerebral infarction without residual deficits; Z98.61 Coronary angioplasty status; Z51.5 Encounter for palliative care; Z66 Do not resuscitate; Z79.84 Long term (current) use of oral hypoglycemic drugs
CPT/HCPCS: 36415; 36416; 51702; 70450; 70551; 71045; 74176; 76700; 80048; 80053; 80184; 81003; 82570; 82962; 82977; 83735; 84153; 84443; 84484; 84540; 85025; 85610; 85730; 87635; 92523; 92526; 92610; 93005; 93306; 96361; 96372; 96374; 97161; 97165; 97530; 99285; J0360; J1644; J1815; J1940; J2060; J3490; J7030